=== PATIENT | female | born 2000 | race Caucasian/White ===

== ENCOUNTER 2023-04-26 01:10 | Emergency (ER) | payer MEDICAID, SELFPAY ==
[2023-04-26 01:16] VITALS: BP 97/65; PULSE 91; RESP 16; TEMP 36.9; O2SAT 100; BMI 20.4
--- NOTE | 2023-04-26 01:19 | ED_ITS ---
HPI - Ear Problem General Chief complaint: Ear Stated complaint: EAR PAIN Time Seen by Provider: 04/26/23 01:16 Source: patient Mode of arrival: walk-in Limitations: no limitations History of Present Illness HPI Narrative: patient presents complaining of increasing ear pressure for a couple of days. No dizziness or headache. No fever. States she also has a cold. Was swabed a coupled of days ago for flu and covid and neg Related Data Allergies Allergy/AdvReac Type Severity Reaction Status Date / Time amoxicillin Allergy Mild Hives Verified 04/26/23 01:16 Penicillins Allergy Mild Hives Verified 04/26/23 01:16 Review of Systems ROS Status of ROS 10 or more systems reviewed and unremark able except as noted in history and below Exam Constitutional Vital Signs, click to edit/add: Last Vital Signs Temp 98.4 F 04/26/23 01:16 Pulse 91 H 04/26/23 01:16 Resp 16 04/26/23 01:16 BP 97/65 04/26/23 01:16 Pulse Ox 100 04/26/23 01:16 O2 Del Method Room Air 04/26/23 01:16 Common normals: no apparent distress, average body habitus, oriented x3, no limitations, healthy appearing, alert and well nourished HENIN Common normals: normocephalic and head/scalp atraumatic Other: left TM with fluid bulge Eye Common normals: PERRL and EOMs intact bilaterally Respiratory Common normals: normal respiratory effort, no retractions and no use of accessory muscles Cardio Common normals: regular rate, regular rhythm, S1 normal heart sound and S2 normal heart sound Extremity Common normals: normal to inspection and full ROM Neuro Common normals: oriented x3, CN's II-XII intact bilaterally, moves all extremities and no focal motor deficits Psych Appearance: grossly normal Course Vital Signs Vital signs: Vital Signs Temperature 98.4 F 04/26/23 01:16 Pulse Rate 91 H 04/26/23 01:16 Respiratory Rate 16 04/26/23 01:16 Blood Pressure 97/65 04/26/23 01:16 Pulse Oximetry 100 04/26/23 01:16 Oxygen Delivery Method Room Air 04/26/23 01:16 Temperature 98.4 F 04/26/23 01:16 Pulse Rate 91 H 04/26/23 01:16 Respiratory Rate 16 04/26/23 01:16 Blood Pressure 97/65 04/26/23 01:16 Pulse Oximetry 100 04/26/23 01:16 Oxygen Delivery Method Room Air 04/26/23 01:16 Medical Decision Making MDM Narrative Medical decision making narrative: patient presents with URI and pressure pain of her left ear. Found to have bulge of the left TM. Patient complained of decreased hearing. Diagnosis with otitis media and discharged home Discharge Plan Discharge Chief Complaint: Ear Clinical Impression: Otitis media Patient Disposition: Home, Self-Care Instructions: Ear Infection (ED) Stand Alone Forms: Portal Instructions Referrals: Physician,Non-Staff, MD [Primary Care Provider] - 1 week
[2023-04-26] MEDS: AZITHROMYCIN 250 MG TABLET 500 MG PO (01:33)
== END 2023-04-26 01:38 | disposition home or self-care (01) ==
PROVIDERS: Emergency Provider Internal Medicine
DX: H66.92 Otitis media, unspecified, left ear (principal)
CPT/HCPCS: 99283

== ENCOUNTER 2023-08-09 01:48 | Observation (INO) | payer OTHER, SELFPAY ==
--- OUTSIDE RECORDS SUMMARY | 2023-08-09 01:51 | XMS_ITS | CCD ---
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 Q66xlAYxc1C6ADWx fIrzsIYlSfLgsPN9uJ6a GXnvpqxns6bqbedzIpye n2lkvn09vS15C07zKWci ZHRoPSIzMCUiIHZh pJwtir7wbU2hPw1+PGNv jJK5mGN1hQ4mKkIlRsU6 BBdrX966SsWusTMaOhvz h3jke5leiKn3UnRw EKNxobYcsKbcYED8h7Sc Dn41R77eQYnxCATsJDAr IVDcGVNxhSyhdk4vqE0d Ii8+XJ1oa5rxhh66 kH08yQQ+GSWiEFD0xVlt LSneGOEjdT5bKSmfHwO4 ANItGdCezQ22mIAuRNjd Yg8idCnniBbaDN1z OFTyuxibf521TcQzw9em JLXecYDpQPaoHKU5U78l h4X8OWTnJPYaRZB9yXG7 cP1eaIlnhzsbvVCn dDsgdmVydGljYWwtYWxp H903QNNjeLxtOuKhfYRa U5vataOKTL1aWobugMQ+ OJYtOBP7yLdhJVrc YXPwpA6bGTXeY7w2KmWy PxD2SXanR4XaesU6AXGl gYMdMUOojEMAgN3csudh l6hxfejqBdMoZCQp UOp6SVm3SUYtkJonUrKc THE8UmN5GXX7cGSsxA0x wBmnkllsnX8bQta+RklO OjwvdGQ+PHRkIHN0 wVrhSNmbGAYmwH8aREXb Z2m2EoKfRgO8HSzpW7Ud dwF8FEHdzTGbRPWdrDVN hH7csiwzk1eshjja DfSpFKYvHGo8HWc9VWUs zLlwHpVpRTA8DnW2WAM7 pWZtlM2odCyymnxycD1t Oyc+TVJOOjwvdGQ+ WPQfDMK8dPxqHDkwJWOv wW4xJULhL5c3DaMtSiZ1 GOrxX7RqmfM6DYVauHGu EXRfhIHFzX5hsvwq n6fdsuziBpDbSGKoDNq3 OVg8VLFcxHxfHeTkFKM9 UtI3ZCR9sRZmkP1nhVlo zwcteR8mHoo+UGF5 CSN3AL71VK87R6UmNbtb dGFibGU+PHRhYmxlIHdp ZHRoPScxMDAlJyBzdHls OW3qYz1eQOPqPAIb bGxh (more content not included)... Normal [facility] Consent for Treatmenton 03-14 Consent for Treatment [id number] #[id number]:127 Normal [facility] Discharge Instructionson Discharge Instructions [id number]#1.00CD:127 Normal [facility] ED Clinical Summaryon 2021 ED Clinical Summary [place] [id number] ED Clinical Summary Person Information Name: HARMONY RAYO [facility] Age: 22 Years : 2000 Sex: Female Language: Kittitian PCP: NAT ORTIZ DO Marital Status: Visit Id: Visit Reason: Hearing loss; Ear pain; EAR PAIN Speciality: Acuity: 4 Enc Type: Emergency Med Service: Emergency Arrival: 03/30/2022 02:15:32 Discharge: 03/30/2022 04:47:48 LOS: 000 02:32 Checkin: 03/30/2022 02:15:32 Checkout: 03/30/2022 04:47:48 Dispo Type: Home (Routine DC) EVENTS: Event Name Event Status Request Date/Time Start Date/Time Complete Date/Time Arrive Complete 03/30/2022 02:15:32 03/30/2022 02:15:32 03/30/2022 02:15:32 Document Home Meds Request 03/30/2022 02:15:32 Triage Complete 03/30/2022 02:15:32 03/30/2022 02:34:15 03/30/2022 02:34:15 Bed Assign Complete 03/30/2022 02:30:13 03/30/2022 02:30:13 03/30/2022 02:30:13 Dr Exam Complete 03/30/2022 02:30:13 03/30/2022 02:34:44 03/30/2022 02:34:44 RN Exam Complete 03/30/2022 02:30:13 03/30/2022 02:36:23 03/30/2022 02:36:23 Registration Complete 03/30/2022 02:34:44 03/30/2022 02:36:05 03/30/2022 02:36:05 Reg Complete Request 03/30/2022 02:36:05 Reg Bed Request Complete 03/30/2022 02:36:05 03/30/2022 02:36:05 03/30/2022 02:36:05 Patient Care Complete 03/30/2022 02:43:54 03/30/2022 03:44:01 Meds Admin Complete 03/30/2022 02:43:54 03/30/2022 02:48:44 Discharge Complete 03/30/2022 04:43:25 03/30/2022 04:47:58 03/30/2022 04:47:58 Transfer Complete 03/30/2022 04:47:58 03/30/2022 04:47:58 03/30/2022 04:47:58 ADDRESS: [address] [place] [phone] [facility] DOC NOTES: MEDICAL INFORMATION: Prescriptions Given: New Medications Printed Prescriptions azithromycin (azithromycin 250 mg Tab) 250 Milligram By Mouth As Directed. Refills: 0. Medications to Continue with No Changes Other Medications ondansetron (Zofran ODT 4 mg Tab-Dis) 1 Tablets By Mouth every 8 hours as needed as needed for nausea/vomiting. Refills: 0. PATIENT EDUCATION INFORMATION: Instructions: Earache, Adult Follow up: With: Address: When: NAT ORTIZ [address] [place], [place] [id number] Business (1) In 3 days 04/02/2022, only if needed DIAGNOSIS: 1:Left ear pain; 2:Impacted cerumen of left ear Normal [facility] ED Note-Physicianon 03-30-20 ED Note-Physician Basic Information Time Seen: Woodrow Sanchez MD 03/30/2022 02:34 Chief Complaint pt complains of L ear pain and difficulty hearing x2 days History of Present Illness Several days ago the patient attempted to clean out and dry her ear after showering and believes that she may have a pushed some soft wax deeper into the ear canal. She states she has had some congestion over the past several days but no fever. She does notice diminished hearing on the left side. Review of Systems A 10 point review of systems is negative except as noted above. Medical and Surgical History: Reviewed and noted Social history: Lives at home Tobacco: Denies Physical Exam Vitals & Measurements T: 37.0 ?C(Oral) HR: 74(Peripheral) RR: 22 BP: 120/76 SpO2: 100% HT: 160 cm WT: 52 kg BMI: 20.31 The right tympanic membrane is obscured by soft cerumen. The ear canal is not swollen or red. Left tympanic membrane also obscured by soft cerumen it does appear to place more deeply in the ear canal. The ear canal itself does not appear to be red. Traction on the pinna and palpation over the tragus is not particularly tender. Medical Decision Making We will irrigate the ear to attempt to remove the cerumen. If unsuccessful here in the ER we will place the patient on an oral antibiotic to cover the middle ear. I rechecked the left external ear canal after the nurses irrigated the ear. The ear canal is now completely clear of cerumen. The tympanic membrane does appear to be slightly retracted and somewhat injected this may simply be due to the manipulation and irrigation. As such I will prepare a prescription for Zithromax 6 pack to only be filled if the ear remains painful on Friday morning. Assessment/Plan 1. Left ear pain (H92.02: Otalgia, left ear) 2. Impacted cerumen of left ear (H61.22: Impacted cerumen, left ear) Orders: azithromycin, 250 mg, Oral, As Directed, # 6 tab(s), Refills(s) 0 carbamide peroxide otic, 5 drop(s), Soln-Otic, Ear-Left, Once, Stop date 03/30/22 2:43:00 EST, STAT, Start date 03/30/22 2:43:00 EST Ear Irrigation Medications Administered Given Debrox 6.5% Soln-Otic, 5 drop(s), Ear-Left Disposition Plan Patient Discharge Condition Improved Discharge Disposition Home Discharge Prescription List Prescriptions azithromycin 250 mg Tab, 250 mg, Oral, As Directed Follow-up With When Contact Information NAT ORTIZ In 3 days 04/02/2022 EST, only if needed [address] [place] [address] [facility] (1) Additional Instructions: Patient Education Earache, Adult Problem List/Past Medical History Ongoing Smoker Historical None Procedure/Surgical History None. Medications Inpatient No active inpatient medications Home azithromycin 250 mg Tab, 250 mg, Oral, As Directed Zofran ODT 4 mg Tab-Dis, 4 mg= 1 tab(s), Oral, q8hr, PRN Allergies amoxicillin penicillins Social History Alcohol Current, Wine, 1-2 times per month, 03/30/2022 Substance Abuse Tobacco Current vaping or e-cigarette use Smokeless Tobacco Use:. Vaping, 03/30/2022 Household tobacco concerns: Yes., 12/27/2010 Lab Results No qualifying data available. Diagnostic Results No qualifying data available. Normal [facility] Comment on above: Result Comment: Elec tronically Signed By: Daniel SEVERINO, Woodrow\.br\Date and Time Signed: 03/30/22 04:44 EST ED Patient Education Noteon 03-30-2022 ED Patient Education Note ENT Earache, Adult An earache, or ear pain, can be caused by many things, including: ? An infection. ? Ear wax buildup. ? Ear pressure. ? Something in the ear that should not be there (foreign body). ? A sore throat. ? Tooth problems. ? Jaw problems. Treatment of the earache will depend on the cause. If the cause is not clear or cannot be determined, you may need to watch your symptoms until your earache goes away or until a cause is found. Follow these instructions at home: Pay attention to any changes in your symptoms. Take these actions to help with your pain: ? Take or apply ppli-zek-bgofazc and prescription medicines only as told by your health care provider. ? If you were prescribed an antibiotic medicine, use it as told by your health care provider. Do not stop using the antibiotic even if you start to feel better. ? Do not put anything in your ear other than medicine that is prescribed by your health care provider. ? If directed, apply heat to the affected area as often as told by your health care provider. Use the heat source that your health care provider recommends, such as a moist heat pack or a heating pad. ? Place a towel between your skin and the heat source. ? Leave the heat on for 20?30 minutes. ? Remove the heat if your skin turns bright red. This is especially important if you are unable to feel pain, heat, or cold. You may have a greater risk of getting burned. ? If directed, put ice on the ear: ? Put ice in a plastic bag. ? Place a towel between your skin and the bag. ? Leave the ice on for 20 minutes, 2?3 times a day. ? Try resting in an upright position instead of lying down. This may help to reduce pressure in your ear and relieve pain. ? Chew gum if it helps to relieve your ear pain. ? Treat any allergies as told by your health care provider. ? Keep all follow-up visits as told by your health care provider. This is important. Contact a health care provider if: ? Your pain does not improve within 2 days. ? Your earache gets worse. ? You have new symptoms. ? You have a fever. Get help right away if: ? You have a severe headache. ? You have a stiff neck. ? You have trouble swallowing. ? You have redness or swelling behind your ear. ? You have fluid or blood coming from your ear. ? You have hearing loss. ? You feel dizzy. This information is not intended to replace advice given to you by your health care provider. Make sure you discuss any questions you have with your health care provider. Document Released: 11/15/2004 Document Revised: 03/13/2018 Document Reviewed: 09/23/2016 Elsevier Patient Education ? 2019 [employer] Normal [facility] ED Patient Summaryon 022 ED Patient Summary [place] [id number] Patient Discharge Instructions Person Information Name: HARMONY RAYO Age: 22 Years Arrival Date: 03/30/2022 02:15:32 Discharge Diagnosis: 1:Left ear pain; 2:Impacted cerumen of left ear Primary Care Physician: NAT ORTIZ DO Provider Information Primary Provider: Woodrow Sanchez MD Advanced Extrusion Manager:None The exam and treatment you received in the Emergency Department were for an urgent problem and are not intended as complete care. It is important that you follow up with a doctor, nurse practitioner, or physician?s editorial assistant for ongoing care. If your symptoms become worse or you do not improve as expected and you are unable to reach your usual health care provider, you should return to the Emergency Department. We are available 24 hours a day. HARMONY RAYO has been given the following list of patient education materials, prescriptions and follow-up instructions: Follow-up Instructions: With: Address: When: NAT ELIGLES [facility] [address] [place] [id number] [facility] (1) In 3 days 04/02/2022, only if needed In the event that this physician does not participate in your insurance network, please consult with your insurance company to find a nearby participating provider. Patient Education Materials: Earache, Adult A MESSAGE TO ALL PATIENTS REGARDING OPIOIDS PRESCRIPTION OPIOIDS: WHAT YOU NEED TO KNOW Prescription opioids can be used to help relieve pqoygaik-ne-wekoqt pain and are often prescribed following a surgery or injury, or for certain health conditions. These medications can be an important part of the treatment but also come with serious risks. It is important to work with your healthcare provider to make sure you are getting the safest, most effective care. WHAT ARE THE RISKS AND SIDE EFFECTS OF OPIOID USE? Prescription opioids carry serious risks of addiction and overdose, especially with prolonged use. An opioid overdose, often marked by slowed breathing, can cause sudden . The use of prescription opioids can have a number of side effects as well, even when taken as directed: ? Tolerance?meaning you might need to take more of the medication for the same pain relief ? Physical dependence?meaning you have symptoms of withdrawal when a medication is stopped ? Increased sensitivity to pain ? Constipation ? Nausea, vomiting, and dry mouth ? Sleepiness and dizziness ? Confusion ? Depression ? Low levels of testosterone that can result in lower sex drive, energy, and strength ? Itching and sweating RISKS ARE GREATER WITH: ? History of drug misuse, substance use disorder, or overdose ? Mental health conditions (such as depression or anxiety) ? Sleep apnea ? Older age (65 years and older) ? Avoid alcohol while taking prescription opioids. Also, unless specifically advised by your health care provider, medications to avoid include: ? Benzodiazepines (such as Xanax or Valium) ? Muscle relaxants (such as Soma or Flexeril) ? Hypnotics (such as Ambien or Lunesta) ? Other prescription opioids KNOW YOUR OPTIONS Talk to your health care provider about ways to manage your pain that don?t involve prescription opioids. Some of these options may actually work better and have fewer risks and side effects. Options may include: ? Pain relievers such as acetaminophen, ibuprofen, and naproxen ? Some medication that are also used for depression or seizures ? Physical therapy and exercise ? Cognitive behavioral therapy, a psychological, goal-directed approach, in which patients learn how to modify physical, behavioral, and emotional triggers of pain and stress. IF YOU ARE PRESCRIBED OPIOIDS FOR PAIN: ? Never take opioids in greater amounts or more often than prescribed. ? Follow up with your primary health care provider. o Work together to create a plan on how to manage your pain. o Talk about ways to help manage your pain that don?t involve prescription opioids. o Talk about any and all concerns and side effects. ? Help prevent misuse and abuse o Never sell or share prescription opioids. o Never use another person?s prescription opioids. ? Store prescription opioids in a secure place and out of reach of others (this may include visitors, children, friends, and family). ? Safely dispose of unused prescription opioids: Find your community drug take-back program or your pharmacy mail-back program, or flush them down the toilet, following guidance from the Food and Drug Administration (www.fda.gov/Drugs/R esourcesForYou). ? Visit www.cdc.gov/drugover dose to learn about the risks of opioids abuse and overdose. ? If you believe you may be struggling with addiction, tell your health medicare insurance specialist and ask for guidance or call SAMHSA?S National Helpline at 3-482-705-YYNK. (more content not included)... Normal [facility] Coding Summary.on 02-05-2022 Coding Summary. [id number] Gh0bWw+PGhlYWQ+PE1FV CGmV39joZPubF6YL8eNU H2XCLZSTEWFCB7WXV4bo QG6PDopM1ZqbnJg IdqozPScCG88XHx4UXZ8 oQmdTHjboD3nqLLxM2u5 MhNxXP01fD30TFwfVPGm RgN2AoQrqkpyuGVk X3haQtBamXXoYoj+PHRh YmxlIHdpZHRoPScxMDAl YiIfsFwuPL3wSb1rDKQf LWNvbGxhcHNlOiBj y2vlKHXmPCxlYR8fnXcq A3ByiLH4XTUsh7z6Xo92 dHI+VKOwMZF7gQgcKLuh o145VqAba5hxLZB4 yHFcMXqtCPB7T23ee9W8 YBQtQIMcTPL7sIB7xR7f zGtgjyxzH9KrwXWrRzQ9 GVS1gHMwsP9wgWvs fjtfxI7hPxd+G57IWV2P PIRRJC7TRjn5M5KsPfjb dHI+AB86URQiUC43xQVw wJOrm2ieyEd7EyGu WJQwLDU5uOakNBfqp5Ql PHUlB80qrOGbr7Y4TILl vUyldDSzBsZlbVK6aY8b YNylwjowo0vxqyab Xdkst6bcpc56aK04O59f IKblFMPmAHU0VSBzNIAa dBucyv9qgX8mWy0+IDxj s4oct9ndzUt1PfKa AXXopwWssPnuIDC7k7Tr Zu66O9VrbGyyr6OfXhq4 mm95hFEgs4K3iIZ2OJvx WVAtjV4fFBujQoR0 FLPhLqYemW94xBFxZJlo Ap3bzOdpgYznTO0sOQKk wfasWWSdmM5mSCKprBUu wFgyOD0kVCLzvkvp q793OgSdUZS5JLYyrTKb V4OvrH2rSdTxTKApETSe P7MosDPsLStzY876WFwn RfU7QMGxudJhO8Rs XYBxpFwsFdZ7d1L8Vr5O m8HoayghALG4UWioMCHs UvD3NgYdHlK5P9IdOir1 KFNzgGgtPO7rP2Ek MHAqwdsukqydaRI7MLFf UCNpmY83mFRbWDlaBd2p n5V8p549PMJmVCGpoO03 Vv0zrHnnYGEzlCZP lY5kuvbtp4tkikcvKnUu OPXfGMi8URc7CESveCof DgSoIZB1VrT4NBV0zPNt cO1pkHxhedkajC9q Oyc+T90yuB4rSOA9YPD0 poqiHSViliAoBG22WX71 D7XqYshzpFTrtKN+PGRp chNqjAajAU0hPdVl x5drc9HoFXnaB5RbZEUs RUwtLrg4ZXPbLOS1yOU0 vF2qCFBzYXrtl1D9rTR8 G2EdbbVgwu5cz4do WFNiUBmfQ47vjNGdt2Q1 AOWwiRQ0UHBmcBaxXjVd cR63Mhb+MGGocCgkl1Aa Btwce6wrp1vbjOe4 IjMwJSIgdmFsaWduPSJ0 n3PvZr09I69wQZtaPLJv FODzUXLjLEVxtIfton5f gL9kMu5+PGNvbCB3 bZN0aV9sSNPuXnR4PHju M691OvCvyHVxLoryr0hp h7rfyLa2FmXvDWZvejHy mYpaYBA0j4RmTw99 P09dIXcyMWJxHJKeDUKo BRGlyXmwqt7wwQ3nMr2+ ZP5vr3obmd41wR50qKZ+ UGUqZTY4fNwpTLze BCDhuK6bSQsgEeT1RCTy BqLjnC78fLHhQJwrHl8e tGhiaSljYZ3kUNLikjyg e224RlJqa3wvLJLx uFVfCGotQLU9J82mq7S0 DJWeWZBhDSD1gTL3nK4j bGlnbjogbGVmdDsgdmVy yUwgSLvoYNbzG988 IHRvcDsnPlBhdGllbnQg GsUcXXo1W3UdGhs2HYAc jCayXX2onXQaVLunKo9v zFelcMbgYF0jIUXn dvokq923KvIcc9ggMVOm tTWdUCzeCHM1F64xy1T4 EBNrKSPeKQI4dUQ5bG2g bGlnbjogbGVmdDsg caAudVkxPOooZZizV546 IHRvcDsnPkJpcnRoIERh nNM7YW99US75xWUdg2K4 uEX3N7RkTCOehmoi hmonlYQ9ZCQdRMQhfE83 Jl4ryNejKq1bTIXmSXS0 YNVdrVVjL8WirW0oThBw LDHgJNVuC3AurULs PKpbE800YKyuPdN0UFZw kpHwV9RdEVLdhXddKnO6 r9Y3Er2AX9F2FT12XD98 jTOea1N5vHM8V6Iz ULJjdbefgoqupXR7TLQy EYJzmE61Qt8pgEjaFw7m SHMqEJB6DFBffUPwU7Yv oA8pVvObPTJtNJXo N3GozULeOSodU004ITik QnO7LKAthlDsS3UkIMEk qEtwZgU6d7Q1Ni1ZHBk2 FP32RP58tTPuo6I1 cMA4U5ShTJOxkbsiitga gUZ2GIEjCLZkrQ31Az6e kAxvYw7yUIRkQII8MAYg pATvG9TmfJ4pUkRu FKDnTJEtZ7KvmSYdQLvh Y369EMdzVvI8QKEqckBr I9CvHBYomHuaDgU7l5G9 Gp4LYZUsWX88NOH8 sTU0ZX07HM35Y8UqPuns dGFibGU+PHRhYmxlIHdp ZHRoPScxMDAlJyBzdHls EP9oVl8rOLEqEDSg zPaitEMgEwSwc4ugXICw KRsrEZ5vgJbxY1DlfQD4 ECTus6n7Tf31F02dC2Xe dXA+QEHfhXH2rPZ6 vH2wCbEaKlB7TMgbA535 RcEgxHXsGxvlr0xjv7tk tKc6LlV1RGJaaqEbhLnr QTL4r1BeDn20N18i IHdpZHRoPSIxNSUiIHZh wSobkd1pjZ5sNv6+PGNv aOM2nFT4qF0rOkQqUiY2 MWobR643AjXzySXn Yjril3ljx3moqWd2VzZz SKNpeoMtaFqsAXC1c8So Er15J9OazKjri5BmHrx6 sz49uUWsr1R3gIU0 Q7HhYGVczrigxTTlcRaf TP8gNBGptsnkETOlgX4v JESeP1d6LpOeAzL0UDjl U6WwhnQ5RNGocFKx TZhvGKU2O32xt6O4IGOq LDYwDQW3rKU6eL7waXlh bjogbGVmdDsgdmVydGlj CUwvLVoeD722EJUf aQxsWAHscQ2rYTPlrHOv eMphAA0mLVFceeotJqxI XwDCOBdeEhRHSg6HKAkM BoN5O1TrQox0ECZf vVbtJI2gxCEgGTubOb8y pWfeoOzcEZ2fWRPfxznc JMWccD4tBFJpkDTuwPju HC7vGLKxmnisy071 NlYvTYM0PCTlcTLiR1Jj aI1yFzOkDJYmOVFkN0Wr qMMfCWihI406DNzwImH5 XZRsykKnN7PrAZPz qSzwJpB0u9W6Ra2pQJ5d TT9qOCMnHA73KM14xQZk n7S6lWU0X0ChYMVgselt qezzrBP4HAStFYUo jH56nHFwKCnmEk7as5Q3 a050MHSjAQTgcB02Je6q rMlvQLKhuEKOvA0rxcqy r0erlewaDhPzZBHk DSz3HVj7KDDpfUcsFjMi KNV7GcD9ZRG3dFMdvV3w oNipxtpsqA6lYom+MjAg CBVyrjA4W6CoKft1 TUBskHtsIL4xfSQiDHjd Xw4ugCadoJcxHW8nYTJv qkuwKXQzbH4fSPPbnMMb fLzbXI3qVFLdoxfu y473FsMtHKH4MKWvnQQi G0YfrY6oAbIlCIXfXUKe Q7IcjOGnXAfrF749NXan BrR8OWVgujOuV7Ek EXGwqClyJdF9a7U2Iy5Q SY4loEH7D5UaFdq8HOHq gUcsNS4jlAKjRCyhYn0f xUfkgXfsKG5yAZVn skuqWFKcpN5hNCStkOPr tLppTV0wQTFzydbkw045 YkBvGAJ7DIEpzEWdZ2Uo nN8sIxIaPVHdFGDd P0YjaMWwVJpnU464LHlg AlR3JWXmgtYiL8InIZDl sFybYhR5p5A4Ac7HpVQm Y9LcL4u6B5JwQxem dHI+JJ88XDVcQC07hTJf fIMrw7xcaUt0OmNaFOYr GVZ1vUiiVKqjz5GhXETk P65rxHIds1Z3RWId oMerbBQyGaUugEI8wE4p JDibysfoq1tknftdOzyo m2ogyb82uQ35L36bFWao ZHRoPSIzMCUiIHZh jTmrox8keO7aCf8+PGNv fCC2zNP0iC3mBsAsNgD3 QGtjM772XfNwzAWbEwlw q3uow0jkhFm4MtHh RSLokvEkgBiwAVI4u0Zj On76Z03sEWrlFMYnPWTh NTHeBPWtbAnhlf0ufB0n Ii8+WQ9ul2nyxo27 eD20uNV+UTQyGFK4qKby YNdsICDbaN8bTFvqToM3 KUWnBcXaaL69xZWaLRim Lo6ivOuhlFndNE5y BXEskqycb582HwSdl7ql EFDqrFJwQLcbLBX2Q47n w1W5KNGxLLTfKXG2cDA6 qJ4gyRjrsdqvgDNz dDsgdmVydGljYWwtYWxp R040UNAkoWdaWoVcnXVs Z6wsltTGTM8iAiyguQF+ ANMaLAY1hGanGZvc MSIvrN9tTXSoH2p7XhGr HsU2MKpbJ2LlwvM7ANGo aSGmGKInuAUQwP5hwjlk t1hcghbmUjWyLVMb KMc4GGw7OEZjpVzkLfAu HGP4OjO6ENP4tMPalA2y vWvgjxtqbM8uIfx+RklO OjwvdGQ+PHRkIHN0 sDxzGFppQQIpmB0wYJXw W4x5GtJbMfC0IVtmN8Ei hyP9XWIorPQgVENeiIVM aT0ejyudg4eycbrz CoKoKTItOYu2MQv1LIZs uNllChJzJJM7NmB3TRC1 iDGceU3rzPbdxhpbeW7v Oyc+TVJOOjwvdGQ+ MRLvRIS0eFviWQfmAAFu mR4iQKBpK4k5BeQmUuZ5 DOdjH0UiwqS6IMAeuTBo RXWybSEHoY3rcmfw k5ljmjpvNuSlQUSaSTi3 LDh4WAMlzEvfKkWsJWZ0 DnF5JNN5kBWmgK9twSzn arnkrQ2fWah+UGF5 LEX6NX96XZ33V0XjIdbc dGFibGU+PHRhYmxlIHdp ZHRoPScxMDAlJyBzdHls ZO0eLq5wGCYpTCRg bGxh (more content not included)... Normal [facility] Discharge Instructionson Discharge Instructions [id number] Normal [facility] ED Clinical Summaryon 2021 ED Clinical Summary [place] [id number] ED Clinical Summary Person Information Name: HARMONY RAYO [facility] Age: 21 Years : 2000 Sex: Female Language: Kittitian PCP: NAT ORTIZ DO Marital Status: Visit Id: Visit Reason: Foreign body - Vaginal; TAMPON STUCK Speciality: Acuity: 4 Enc Type: Emergency Med Service: Emergency Arrival: 02/04/2022 21:45:38 Discharge: 02/04/2022 22:19:15 LOS: 000 00:34 Checkin: 02/04/2022 21:45:38 Checkout: 02/04/2022 22:19:15 Dispo Type: Home (Routine DC) EVENTS: Event Name Event Status Request Date/Time Start Date/Time Complete Date/Time Arrive Complete 02/04/2022 21:45:38 02/04/2022 21:45:38 02/04/2022 21:45:38 Document Home Meds Request 02/04/2022 21:45:38 Triage Complete 02/04/2022 21:45:38 02/04/2022 21:55:18 02/04/2022 21:55:18 Registration Complete 02/04/2022 21:50:18 02/04/2022 21:50:18 02/04/2022 21:50:18 Reg Complete Request 02/04/2022 21:50:18 Reg Bed Request Complete 02/04/2022 21:50:18 02/04/2022 21:50:18 02/04/2022 21:50:18 RN Exam Complete 02/04/2022 21:56:44 02/04/2022 21:56:44 02/04/2022 21:56:44 Bed Assign Complete 02/04/2022 21:56:52 02/04/2022 21:56:52 02/04/2022 21:56:52 Dr Exam Complete 02/04/2022 21:56:52 02/04/2022 21:58:46 02/04/2022 21:58:46 Registration Request 02/04/2022 21:58:46 Dr Exam Complete 02/04/2022 21:59:27 02/04/2022 21:59:27 02/04/2022 21:59:27 Discharge Complete 02/04/2022 22:14:31 02/04/2022 22:19:20 02/04/2022 22:19:20 Transfer Complete 02/04/2022 22:19:20 02/04/2022 22:19:20 02/04/2022 22:19:20 ADDRESS: [address] [place] [address] [id number] [facility] DOC NOTES: MEDICAL INFORMATION: Prescriptions Given: Medications to Continue with No Changes Other Medications ondansetron (Zofran ODT 4 mg Tab-Dis) 1 Tablets By Mouth every 8 hours as needed as needed for nausea/vomiting. Refills: 0. PATIENT EDUCATION INFORMATION: Instructions: Vaginal Foreign Body, Hraz-ai-Zfpg; Health Maintenance, Male Follow up: With: Address: When: NAT ORTIZ [address] [place] [address] [place] [id number] Business (1) In 3 days 02/07/2022 Comments: Follow-up with your primary care provider in 3 to 5 days. If symptoms worsen, do not improve, or new symptoms arise please report back to emergency department for further evaluation. DIAGNOSIS: Encounter for medical screening examination Normal [facility] ED Note-Physicianon 02-06-20 ED Note-Physician Basic Information Time Seen: Darryl DAVEY, Beau Dhillon 02/04/2022 21:58 Chief Complaint Pt. presents to the ed with c/o having a tampon stuck in her vaginal canal. History of Present Illness 21-year-old female reports emergency department chief complaint of a foreign body in her vagina. She states that she believes that she has a tampon stuck in her vaginal canal. She states that she replaced when originally around 1230 this afternoon, and when she went to change it around 2, she could not find it. She states that she did put another one in because of bleeding because she is currently is on her period. She reports that she has had some very mild cramping, believes that this is because of her period. Review of Systems A 10 point review of systems is negative except as noted above. Medical and Surgical History: Reviewed and noted Social history: Lives at home Family History: Reviewed. Tobacco: Denies Physical Exam Vitals & Measurements T: 36.7 ?C(Oral) HR: 84(Peripheral) RR: 18 BP: 109/76 SpO2: 100% HT: 157.48 cm WT: 50 kg BMI: 20.16 General: The patient appears well and in no apparent distress. Patient is resting comfortably on bed. Afebrile Skin: Warm, dry, no pallor noted. Head: Normocephalic, atraumatic Neck: No JVD Eye: PERRLA, EOMI ENT: Moist mucus membranes Cardiovascular: Regular rate normal peripheral perfusion Respiratory: No respiratory distress no accessory muscle use no obvious audible wheezing Chest Wall: no deformity Musculoskeletal: normal ROM, no deformity, no swelling GI: No obvious distention soft nontender nondistended no guarding rebounding or rigidity : Pelvic exam was performed with medical student Carri Abrams as a tire layer. Performed pelvic exam, which revealed a clear vaginal vault with no bleeding noted. Do not see any foreign bodies identified. The cervical os was seen, and was closed. No blood was seen coming out of the eyes. Did extensive search, with multiple times with no foreign body seen. Neurological: A&O moves all extremities equal strength and symmetry Psychiatric: Cooperative and appropriate Medical Decision Making 21-year-old female reports emergency department with a complaint that she may have a tampon stuck in her vagina. After pelvic exam with tire layer, I did not see any tampon in the vaginal vault. I discussed that with the patient that I did not find any foreign bodies, she was relieved. Discussed that this likely have fallen out previously. Patient was understanding. Discussed warning signs of continued vaginal foreign bodies to the patient. Follow-up with your primary care provider in 3 to 5 days. If symptoms worsen, do not improve, or new symptoms arise please report back to emergency department for further evaluation. The patient was understanding and agreeable to plan moving forward. Assessment/Plan Encounter for medical screening examination (Z13.9: Encounter for screening, unspecified) Disposition Plan Patient Discharge Condition Stable Discharge Disposition To home Discharge Prescription List Prescriptions No active prescription medications Follow-up With When Contact Information NAT ORTIZ In 3 days 02/07/2022 EDT [address] [place] [address]- Business (1) Additional Instructions: Follow-up with your primary care provider in 3 to 5 days. If symptoms worsen, do not improve, or new symptoms arise please report back to emergency department for further evaluation. Patient Education Vaginal Foreign Body, Rfaa-ff-Yjbv Health Maintenance, Male Attestation Patient seen and evaluated by the physician editorial assistant. Attending physician was present in the emergency department and supervised care. This visit was performed by both the physician and an APC. I performed all aspects of the MDM as documented. This report was transcribed using voice recognition software. Every effort was made to ensure accuracy, however, inadvertently computerized industrial arts teacher mistakes may be present. Appropriate healthcare PPE was used in evaluating this patient. The patient was placed in a mask. The healthcare provider was wearing mask, gloves, and utilizing proper hand hygiene. All equipment was properly cleansed. Problem List/Past Medical History Ongoing Smoker Historical None Procedure/Surgical History None. Medications Inpatient No active inpatient medications Home Zofran ODT 4 mg Tab-Dis, 4 mg= 1 tab(s), Oral, q8hr, PRN Allergies amoxicillin penicillins Social History Tobacco Household tobacco concerns: Yes., 12/27/2010 Lab Results No qualifying data available. Diagnostic Results No qualifying data available. Normal [facility] Comment on above: Result Comment: Elec tronically Signed By: Beau Andrews PA-C\.br\Date and Time Signed: 02/04/22 23:57 EDT\.br\Electronically Co-Signed By: Jeremi Grayson DO\.br\Date and Time Co-Signed: 02/05/22 01:35 EDT ED Patient Education Noteon 02-05-2022 ED Patient Education Note Obstetrics and Gynecology Vaginal Foreign Body A vaginal foreign body is an object that gets stuck or left in the vagina. This can cause: ? Light vaginal bleeding. ? Fluid (discharge) coming from the vagina. This might smell bad or have some blood in it. ? Itching. ? Burning. ? Redness, swelling, or rash near the vagina. ? Belly (abdominal) pain. ? Fever. ? Burning when you pee (urinate). ? Peeing more often than normal. In most cases, symptoms go away once the object is taken out. In rare cases, an object can break through the enriquez of the vagina. This can cause a very bad infection. Follow these instructions at home: ? Take ywsu-siw-svinszd and prescription medicines only as told by your doctor. ? If you were prescribed an antibiotic medicine, take it as told by your doctor. Do not stop taking the antibiotic even if you start to feel better. ? Do not have sex or use tampons until your doctor approves. ? Do not douche or use vaginal rinses unless your doctor says this is okay. ? Keep all follow-up visits as told by your doctor. This is important. Contact a doctor if: ? You have belly (abdominal) pain. ? You have pain when you pee. ? You have a fever. Get help right away if: ? You have a lot of blood or fluid coming from your vagina. ? You have very bad belly pain. Summary ? A vaginal foreign body is any object that gets stuck or left inside the vagina. ? In most cases, symptoms go away once the object is found and taken out. ? Do not have sex or use tampons until your doctor approves. This information is not intended to replace advice given to you by your health care provider. Make sure you discuss any questions you have with your health care provider. Document Released: 03/19/2010 Document Revised: 03/13/2018 Document Reviewed: 07/02/2017 Auto I.D. Patient Education ? 2020 [employer]. Urology Health Maintenance, Male Adopting a healthy lifestyle and getting preventive care are important in promoting health and wellness. Ask your health care provider about: ? The right schedule for you to have regular tests and exams. ? Things you can do on your own to prevent diseases and keep yourself healthy. What should I know about diet, weight, and exercise? Eat a healthy diet ? Eat a diet that includes plenty of vegetables, fruits, low-fat dairy products, and lean protein. ? Do not eat a lot of foods that are high in solid fats, added sugars, or sodium. Maintain a healthy weight Body mass index (BMI) is a measurement that can be used to identify possible weight problems. It estimates body fat based on height and weight. Your health care provider can help determine your BMI and help you achieve or maintain a healthy weight. Get regular exercise Get regular exercise. This is one of the most important things you can do for your health. Most adults should: ? Exercise for at least 150 minutes each week. The exercise should increase your heart rate and make you sweat (moderate-intensity exercise). ? Do strengthening exercises at least twice a week. This is in addition to the moderate-intensity exercise. ? Spend less time sitting. Even light physical activity can be beneficial. Watch cholesterol and blood lipids Have your blood tested for lipids and cholesterol at 20 years of age, then have this test every 5 years. You may need to have your cholesterol levels checked more often if: ? Your lipid or cholesterol levels are high. ? You are older than 40 years of age. ? You are at high risk for heart disease. What should I know about cancer screening? Many types of cancers can be detected early and may often be prevented. Depending on your health history and family history, you may need to have cancer screening at various ages. This may include screening for: ? Colorectal cancer. ? Prostate cancer. ? Skin cancer. ? Lung cancer. What should I know about heart disease, diabetes, and high blood pressure? Blood pressure and heart disease ? High blood pressure causes heart disease and increases the risk of stroke. This is more likely to develop in people who have high blood pressure readings, are of descent, or are overweight. ? Talk with your health care provider about your target blood pressure readings. ? Have your blood pressure checked: ? Every 3?5 years if you are 18?39 years of age. ? Every year if you are 40 years old or older. ? If you are between the ages of 65 and 75 and are a current or former smoker, ask your health care provider if you should have a one-time screening for abdominal aortic aneurysm (AAA). Diabetes Have regular diabetes screenings. This checks your fasting blood sugar level. Have the screening done: ? Once every three years after age 45 if you are at a normal weight and have a low risk for diabetes. ? More often and at a younger age if you are overweight or have a high risk for lonnie (more content not included)... [facility] ED Patient Summaryon 022 ED Patient Summary [address] [address] Patient Discharge Instructions Person Information Name: HARMONY RAYO Age: 21 Years Arrival Date: 02/04/2022 21:45:38 Discharge Diagnosis: Encounter for medical screening examination Primary Care Physician: NAT ORTIZ DO Provider Information Primary Provider: Jeremi Grayson DO Advanced Extrusion Manager:None The exam and treatment you received in the Emergency Department were for an urgent problem and are not intended as complete care. It is important that you follow up with a doctor, nurse practitioner, or physician?s editorial assistant for ongoing care. If your symptoms become worse or you do not improve as expected and you are unable to reach your usual health care provider, you should return to the Emergency Department. We are available 24 hours a day. HARMONY RAYO has been given the following list of patient education materials, prescriptions and follow-up instructions: Follow-up Instructions: With: Address: When: NAT ORTIZ [address] [place] [id number] Business () In 3 days 02/07/2022 Comments: Follow-up with your primary care provider in 3 to 5 days. If symptoms worsen, do not improve, or new symptoms arise please report back to emergency department for further evaluation. In the event that this physician does not participate in your insurance network, please consult with your insurance company to find a nearby participating provider. Patient Education Materials: Vaginal Foreign Body, Kbsq-ya-Htnn; Health Maintenance, Male A MESSAGE TO ALL PATIENTS REGARDING OPIOIDS PRESCRIPTION OPIOIDS: WHAT YOU NEED TO KNOW Prescription opioids can be used to help relieve tjbqqznz-aj-aadbuc pain and are often prescribed following a surgery or injury, or for certain health conditions. These medications can be an important part of the treatment but also come with serious risks. It is important to work with your healthcare provider to make sure you are getting the safest, most effective care. WHAT ARE THE RISKS AND SIDE EFFECTS OF OPIOID USE? Prescription opioids carry serious risks of addiction and overdose, especially with prolonged use. An opioid overdose, often marked by slowed breathing, can cause sudden . The use of prescription opioids can have a number of side effects as well, even when taken as directed: ? Tolerance?meaning you might need to take more of the medication for the same pain relief ? Physical dependence?meaning you have symptoms of withdrawal when a medication is stopped ? Increased sensitivity to pain ? Constipation ? Nausea, vomiting, and dry mouth ? Sleepiness and dizziness ? Confusion ? Depression ? Low levels of testosterone that can result in lower sex drive, energy, and strength ? Itching and sweating RISKS ARE GREATER WITH: ? History of drug misuse, substance use disorder, or overdose ? Mental health conditions (such as depression or anxiety) ? Sleep apnea ? Older age (65 years and older) ? Avoid alcohol while taking prescription opioids. Also, unless specifically advised by your health care provider, medications to avoid include: ? Benzodiazepines (such as Xanax or Valium) ? Muscle relaxants (such as Soma or Flexeril) ? Hypnotics (such as Ambien or Lunesta) ? Other prescription opioids KNOW YOUR OPTIONS Talk to your health care provider about ways to manage your pain that don?t involve prescription opioids. Some of these options may actually work better and have fewer risks and side effects. Options may include: ? Pain relievers such as acetaminophen, ibuprofen, and naproxen ? Some medication that are also used for depression or seizures ? Physical therapy and exercise ? Cognitive behavioral therapy, a psychological, goal-directed approach, in which patients learn how to modify physical, behavioral, and emotional triggers of pain and stress. IF YOU ARE PRESCRIBED OPIOIDS FOR PAIN: ? Never take opioids in greater amounts or more often than prescribed. ? Follow up with your primary health care provider. o Work together to create a plan on how to manage your pain. o Talk about ways to help manage your pain that don?t involve prescription opioids. o Talk about any and all concerns and side effects. ? Help prevent misuse and abuse o Never sell or share prescription opioids. o Never use another person?s prescription opioids. ? Store prescription opioids in a secure place and out of reach of others (this may include visitors, children, friends, and family). ? Safely dispose of unused prescription opioids: Find your community drug take-back program or your pharmacy mail-back program, or flush them down the toilet, following guidance from the Food and Drug Administration (www.fda.gov/Drugs/R esourcesForYou). ? Visit www.cdc.gov/drugov (more content not included)... Normal [facility] Consent for Treatmenton 01-13 Consent for Treatment [phone] 21 [id number] #1.00CD:127 Normal [facility] Established Visit (Orthopaed ic Surgery)on 10-26-2019 Established Visit (Orthopaedic Surgery) History of Present Illness Harmony is an 19 year old female who presents for a follow up evaluation of scoliosis today. She says that she has been doing well and has no concerns at this time. She denies pain, neurological symptoms and nocturia. She denies a family history. She began menarche 5 years ago. 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 Active Problems Adolescent idiopathic scoliosis of thoracolumbar region (737.30) (M41.125) Past Medical History History of No significant past medical history Surgical History Denied: History Of Prior Surgery Family History No pertinent family history Social History Never a smoker Allergies No Known Allergies Recorded By: Melodie Jaramillo; 08/22/2016 8:07:08 AM Current Meds No Reported Medications Recorded SELIN = N; Record; Last Updated By: Melodie Jaramillo; 08/22/2016 8:07:07 AM Vitals Vital Signs Recorded: [id number] 03:23PM Height5 ft 2.99 in 2-20 Stature Wmtzigubli99 % Wrlhah393 lb 2.66 oz 2-20 Weight Pqdihodyyj31 % BMI Cbxvgkpuzs80.94 BMI Xtcdtufvih52 % BSA Calculated1.55 Physical Exam General : Well developed, well nourished female in no acute distress. Skin: The skin is intact with no evidence of abrasions, bruises, or swelling. She stood 160 cm in height and weighed 53.6 kg. She stood with level pelvis and shoulders. In the forward bend position, she had a mild right thoracic rib hump and slightly larger left lumbar prominence. She had good spinal mobility with right and left lateral bending, lateral rotation and lumbar extension. Her neurological examination was normal. Muscle strength was 5/5 in all muscle groups. No sensory deficits were present. Deep tendon reflexes were 2+ and symmetrical with no signs of clonus. Babinski signs were absent. Results/Data She has a 23 curve from T5-T10, a 42 curve from T10-L3, and a 15 curve from L3 to the sacrum. She is Risser 5. Diagnoses/Problems Adolescent idiopathic scoliosis of thoracolumbar region (737.30) (M41.125) Provider Impressions Marlene has a stable curve and she is nearly skeletally mature. We are going to check her again in 12 months with a repeat AP and lateral standing scoliosis film to look for progression. If he does progress over time, surgery may become more indicated but at this point observation is still appropriate. She and her family understand that we will need to follow her past skeletal maturity. Signatures Electronically signed by : Melodie Jaramillo MD; Oct 27 2019 9:33PM EST (Author) Normal [facility] PARATHYROID HORMONE,INTACTon 07-20-2019 PARATHYROID HORMONE,INTACT 85.4 pg/mL Normal 18.5 - 88.0 [facility] Comment on above: Performed By: #### V TDOH #### [facility] [address] [place] [address] CBC AND DIFFERENTIALon 07-18 % AUTOMATED IMMATURE GRAN 0.3 % Normal 0.0 - 0.9 [facility] Comment on above: Result Comment: Joceline ture Granulocyte Count (IG) includes promyelocytes, myelocytes and metamyelocytes but does not include bands. Percent differential counts (%) should be interpreted in the context of the absolute cell counts (cells/L). Performed By: #### V TDOH #### [facility] [address] [place] [address] Basophils (Bld) [#/Vol] 0.02 10*3/uL Normal 0.00 - 0.10 [facility] Comment on above: Performed By: #### V TDOH #### [facility] [address] [place] [address] Basophils/100 WBC (Bld) 0.5 % Normal 0.0 - 2.0 [facility] Comment on above: Performed By: #### V TDOH #### [facility] [address] [place] [address] Eosinophils (Bld) [#/Vol] 0.12 10*3/uL Normal 0.00 - 0.40 [facility] Comment on above: Performed By: #### V TDOH #### [facility] [address] [place] [address] Eosinophils/100 WBC (Bld) 3.1 % Normal 0.0 - 6.0 [facility] Comment on above: Performed By: #### V TDOH #### [facility] [address] [place] [address] Erythrocyte distribution width (RBC) [Ratio] 15.2 % High 11.5 - 14.5 [facility] Comment on above: Performed By: #### V TDOH #### [facility] [address] [place] [address] Hematocrit (Bld) [Volume fraction] 35.1 % Low 36.0 - 46.0 [facility] Comment on above: Performed By: #### V TDOH #### [facility] [address] [place] [address] Hemoglobin (Bld) [Mass/Vol] 11.2 g/dL Low 12.0 - 16.0 [facility] Comment on above: Performed By: #### V TDOH #### [facility] [address] [place] [address] Lymphocytes (Bld) [#/Vol] 1.19 10*3/uL Normal 0.80 - 3.00 [facility] Comment on above: Performed By: #### V TDOH #### [facility] [address] [place] [address] Lymphocytes/100 WBC (Bld) 30.7 % Normal 13.0 - 44.0 [facility] Comment on above: Performed By: #### V TDOH #### [facility] [address] [place] [address] MCHC (RBC) [Mass/Vol] 31.9 g/dL Low 32.0 - 36.0 [facility] Comment on above: Performed By: #### V TDOH #### [facility] [address] [place] [address] MCV (RBC) [Entitic vol] 90 fL Normal 80 - 100 [facility] Comment on above: Performed By: #### V TDOH #### [facility] [address] [place] [address] Monocytes (Bld) [#/Vol] 0.61 10*3/uL Normal 0.05 - 0.80 [facility] Comment on above: Performed By: #### V TDOH #### [facility] [address] [place] [address] Monocytes/100 WBC (Bld) 15.7 % Normal 2.0 - 10.0 [facility] Comment on above: Performed By: #### V TDOH #### [facility] [address] [place] [address] Neutrophils (Bld) [#/Vol] 1.93 10*3/uL Normal 1.60 - 5.50 [facility] Comment on above: Performed By: #### V TDOH #### [facility] [address] [place] [address] Neutrophils/100 WBC (Bld) 49.7 % Normal 40.0 - 80.0 [facility] Comment on above: Performed By: #### V TDOH #### [facility] [address] [place] [address] Nucleated RBC/100 WBC (Bld) [Ratio] 0.0 /100 WBC Normal 0.0-0.0 [facility] Comment on above: Performed By: #### V TDOH #### [facility] [address] [place] [address] Platelets (Bld) [#/Vol] 169 10*3/uL Normal 150 - 450 [facility] Comment on above: Performed By: #### V TDOH #### [facility] [address] [place] [address] RBC (Bld) [#/Vol] 3.89 x10E12/L Low 4.00 - 5.20 [facility] Comment on above: Performed By: #### V TDOH #### [facility] [address] [place] [address] WBC (Bld) [#/Vol] 3.9 10*3/uL Low 4.4 - 11.3 [facility] Comment on above: Performed By: #### V TDOH #### [facility] [address] [place] [address] FERRITINon 07-19-2019 Ferritin [Mass/Vol] 99 ug/L Normal 8 - 150 [facility] Comment on above: Performed By: #### V TDOH #### [facility] [address] [place] [address] FOLATE, SERUMon 07-19-2019 Folate [Mass/Vol] 23.2 ng/mL Normal >5.0 [facility] Comment on above: Result Comment: Low <3.4 Borderline 3.4-5.0 Normal >5.0 . Biotin interference may cause falsely elevated results. Patients taking a Biotin dose of up to 5 mg/day should refrain from taking Biotin for 24 hours before sample collection. Providers may contact their local laboratory for further information. Performed By: #### P TH #### [facility] [address] [place] [address] IRON + TIBCon 07-19-2019 % SATURATION 23 % Low 25 - 45 [facility] Comment on above: Performed By: #### V TDOH #### [facility] [address] [place] [address] Iron [Mass/Vol] 56 ug/dL Normal 35 - 150 [facility] [facility] Comment on above: Performed By: #### V TDOH #### [facility] [address] [place] [address] TIBC 243 ug/dL Normal 240 - 445 [facility] Comment on above: Performed By: #### V TDOH #### [facility] [address] [place] [address] RENAL FUNCTION PANELon 07-18 Albumin [Mass/Vol] 4.0 g/dL Normal 3.4 - 5.0 [facility] Comment on above: Performed By: #### V TDOH #### [facility] [address] [place] [address] Anion gap [Moles/Vol] 18 mmol/L Normal 10 - 20 [facility] Comment on above: Performed By: #### V TDOH #### [facility] [address] [place] [address] Calcium [Mass/Vol] 9.7 mg/dL Normal 8.6 - 10.6 [facility] Comment on above: Performed By: #### V TDOH #### [facility] [address] [place] [address] Chloride [Moles/Vol] 108 mmol/L High 98 - 107 [facility] Comment on above: Performed By: #### V TDOH #### [facility] [address] [place] [address] Creatinine [Mass/Vol] 1.76 mg/dL High 0.50 - 1.05 [facility] Comment on above: Performed By: #### V TDOH #### [facility] [address] [place] [address] GFR- AM. 34 mL/min/1.73m2 Abnormal >60 [facility] Comment on above: Result Comment: CALC ULATIONS OF ESTIMATED GFR ARE PERFORMED USING THE MDRD STUDY EQUATION FOR THE IDMS-TRACEABLE CREATININE METHODS. CLIN CHEM 2007;53:766-72 Performed By: #### V TDOH #### [facility] [address] [place] [address] GFR-NON AM. 28 mL/min/1.73m2 Abnormal >60 [facility] Comment on above: Performed By: #### V TDOH #### [facility] [address] [place] [address] Glucose [Mass/Vol] 83 mg/dL Normal 74 - 99 [facility] Comment on above: Performed By: #### V TDOH #### [facility] [address] [place] [address] HCO3 (Bld) [Moles/Vol] 22 mmol/L Normal 21 - 32 [facility] Comment on above: Performed By: #### V TDOH #### [facility] [address] [place] [address] Phosphate [Mass/Vol] 3.8 mg/dL Normal 2.5 - 4.9 [facility] Comment on above: Result Comment: The performance characteristics of phosphorus testing in heparinized plasma have been validated by the individual laboratory site where testing is performed. Testing on heparinized plasma is not approved by the FDA; however, such approval is not necessary. Performed By: #### V TDOH #### [facility] [address] [place] [address] Potassium [Moles/Vol] 4.2 mmol/L Normal 3.5 - 5.3 [facility] Comment on above: Performed By: #### V TDOH #### [facility] [address] [place] [address] Sodium [Moles/Vol] 144 mmol/L Normal 136 - 145 [facility] Comment on above: Performed By: #### V TDOH #### [facility] [address] [place] [address] Urea nitrogen [Mass/Vol] 37 mg/dL High 6 - 23 [facility] Comment on above: Performed By: #### V TDOH #### [facility] [address] [place] [address] VITAMIN B12on 07-19-2019 Cobalamin (Vitamin B12) [Mass/Vol] 974 pg/mL High 211 - 911 [facility] Comment on above: Performed By: #### P TH #### [facility] [address] [place] [address] VITAMIN D, 25-HYDROXYon -0 VITAMIN D, 25-HYDROXY 60 ng/mL Normal [facility] Comment on above: Result Comment: . DEFICIENCY: < 20 NG/ML INSUFFICIENCY: 20-29 NG/ML SUFFICIENCY: 30-100 NG/ML THIS ASSAY ACCURATELY QUANTIFIES THE SUM OF VITAMIN D3, 25-HYDROXY AND VIT D2,25-HYDROXY. Performed By: #### P TH #### [facility] [address] [place] [address] US RENAL BILATon 06-14-2019 US RENAL BILAT Patient Name: CYNDI LOUIS STUDY: US RENAL BILAT; 06/14/2019 1:27 pm INDICATION: Renal cysts. COMPARISON: None. ACCESSION NUMBER(S): [id number] ORDERING CLINICIAN: MANISHA PIMENTEL TECHNIQUE: Multiple images of the kidneys were obtained . FINDINGS: RIGHT KIDNEY: Right kidney measures approximately 10.6 cm. There is no pole cyst measuring 1.9 x 1.5 x 1.8 cm and a midpole cyst measuring 1.6 x 1.6 x 1.4 cm. Right kidney is otherwise negative. No hydronephrosis. LEFT KIDNEY: Left kidney measures approximately 11.4 cm. Cyst in the upper pole measures 4.4 x 4.6 x 4.9 cm. Lower pole cyst measures 2.5 x 3.1 x 2.6 cm. An adjacent lower pole cyst measures 2.6 x 2.4 x 2.5 cm and a small 1.4 cm cyst was seen in the midpole. There is no hydronephrosis. BLADDER: The urinary bladder is distended and grossly negative. IMPRESSION: Multiple cysts in both kidneys. No hydronephrosis. Electronically signed by: SABRA PALMER MD [facility] VAS LAB Renal Artery Ultras oundon 02-15-2019 [facility] Renal Artery Ultrasound [place] [address] and Vascular Lab Report Renal Artery Ultrasound Patient Name: CYNDINALINI Torres Physician: [id number] Chris Pang MD Study Date: 02/15/2019 Referring Physician: Jama Mendoza MD MRN/PID: [id number] PCP: Accession/Order#: [id number] CC Report to: Date of : 08/18/1945 Technologist: Casey Vega RVT, RDMS Gender: F Technologist 2: Admission Status: Outpatient Location Performed: [facility] Diagnosis/ICD: I15.0-Renovascular hypertension Procedure/CPT: 84524 Abdominal Visceral Renal-[id number] CONCLUSIONS: Right Renal Artery: Right renal arteries demonstrate no evidence of hemodynamically significant stenosis. The right renal veins are widely patent. Single renal cyst documented in the right kidney. Left Renal Artery: Left renal arteries demonstrate no evidence of hemodynamically significant stenosis. The left renal veins are widely patent. Multiple renal cysts documented in the left kidney. Additional Findings: Imaging & Doppler Findings: Renal Artery Duplex Right Kidney: 11.6 cm Left Kidney: Systolic Diastolic ARTERY Systolic Diastolic 100 cm/s 11 cm/s Origin 94 cm/s 14 cm/s 109 cm/s 8 cm/s Prox 76 cm/s 10 cm/s 113 cm/s 10 cm/s Mid 84 cm/s 11 cm/s 80 cm/s 12 cm/s Distal 62 cm/s 8 cm/s 16 cm/s 4 cm/s Superior 15 cm/s 5 cm/s 17 cm/s 5 cm/s Inferior 16 cm/s 4 cm/s Right Left 0.9 R/A Ratio 0.8 0.7 Resistive Index 0.7 Right Left Renal Cyst 1.7 cm 4.8 cm Ao Dist Diam 2 cm Mid Ao 119 cm/s 28833 Chris Pang MD Final Normal [facility] ALBUMIN, URINE SPOTon 2018 ALBUMIN,URINE 7.4 mg/L Normal Not Established [facility] Comment on above: Performed By: #### P TH #### [facility] [address] [place] [id number] ALBUMIN/CREAT RATIO 16.1 ug/mg box spinner Normal 0.0 - 30.0 [facility] Comment on above: Performed By: #### P TH #### [facility] [address] [place] [address] CREATININE,URINE 45.9 mg/dL Normal 20.0 - 320.0 [facility] Comment on above: Performed By: #### P TH #### [facility] [address] [place] [address] CBC AND DIFFERENTIALon 02-03 % AUTOMATED IMMATURE GRAN 0.2 % Normal 0.0 - 0.9 [facility] Comment on above: Result Comment: Perc ent differential counts (%) should be interpreted in the context of the absolute cell counts (cells/L). Performed By: #### P TH #### [facility] [address] [place] [address] Basophils (Bld) [#/Vol] 0.03 10*3/uL Normal 0.00 - 0.10 [facility] Comment on above: Performed By: #### P TH #### [facility] [address] [place] [address] Basophils/100 WBC (Bld) 0.7 % Normal 0.0 - 2.0 [facility] Comment on above: Performed By: #### P TH #### [facility] [address] [place] [address] Eosinophils (Bld) [#/Vol] 0.10 10*3/uL Normal 0.00 - 0.40 [facility] Comment on above: Performed By: #### P TH #### [facility] [address] [place] [address] Eosinophils/100 WBC (Bld) 2.4 % Normal 0.0 - 6.0 [facility] Comment on above: Performed By: #### P TH #### [facility] [address] [place] [address] Erythrocyte distribution width (RBC) [Ratio] 14.8 % High 11.5 - 14.5 [facility] Comment on above: Performed By: #### P TH #### [facility] [address] [place] [address] Hematocrit (Bld) [Volume fraction] 33.1 % Low 36.0 - 46.0 [facility] Comment on above: Performed By: #### P TH #### [facility] [address] [place] [address] Hemoglobin (Bld) [Mass/Vol] 10.1 g/dL Low 12.0 - 16.0 [facility] Comment on above: Performed By: #### P TH #### [facility] [address] [place] [address] Lymphocytes (Bld) [#/Vol] 1.02 10*3/uL Normal 0.80 - 3.00 [facility] Comment on above: Performed By: #### P TH #### [facility] [address] [place] [address] Lymphocytes/100 WBC (Bld) 24.7 % Normal 13.0 - 44.0 [facility] Comment on above: Performed By: #### P TH #### [facility] [address] [place] [address] MCHC (RBC) [Mass/Vol] 30.5 g/dL Low 32.0 - 36.0 [facility] Comment on above: Performed By: #### P TH #### [facility] [address] [place] [address] MCV (RBC) [Entitic vol] 91 fL Normal 80 - 100 [facility] Comment on above: Performed By: #### P TH #### [facility] [address] [place] [address] Monocytes (Bld) [#/Vol] 0.83 10*3/uL High 0.05 - 0.80 [facility] Comment on above: Performed By: #### P TH #### [facility] [address] [place] [address] Monocytes/100 WBC (Bld) 20.1 % Normal 2.0 - 10.0 [facility] Comment on above: Performed By: #### P TH #### [facility] [address] [place] [address] Neutrophils (Bld) [#/Vol] 2.14 10*3/uL Normal 1.60 - 5.50 [facility] Comment on above: Performed By: #### P TH #### [facility] [address] [place] [address] Neutrophils/100 WBC (Bld) 51.9 % Normal 40.0 - 80.0 [facility] Comment on above: Performed By: #### P TH #### [facility] [address] [place] [address] Nucleated RBC/100 WBC (Bld) [Ratio] 0.0 /100 WBC Normal 0.0-0.0 [facility] Comment on above: Performed By: #### P TH #### [facility] [address] [place] [address] Platelets (Bld) [#/Vol] 167 10*3/uL Normal 150 - 450 [facility] Comment on above: Performed By: #### P TH #### [facility] [address] [place] [address] RBC (Bld) [#/Vol] 3.62 x10E12/L Low 4.00 - 5.20 [facility] Comment on above: Performed By: #### P TH #### [facility] [address] [place] [address] WBC (Bld) [#/Vol] 4.1 10*3/uL Low 4.4 - 11.3 [facility] Comment on above: Performed By: #### P TH #### [facility] [address] [place] [address] MAGNESIUMon 02-03-2019 Magnesium [Mass/Vol] 2.34 mg/dL Normal 1.60 - 2.40 [facility] Comment on above: Performed By: #### P TH #### [facility] [address] [place] [address] RENAL FUNCTION PANELon 02-03 Albumin [Mass/Vol] 4.0 g/dL Normal 3.4 - 5.0 [facility] Comment on above: Performed By: #### P TH #### [facility] [address] [place] [address] Anion gap [Moles/Vol] 11 mmol/L Normal 10 - 20 [facility] Comment on above: Performed By: #### P TH #### [facility] [address] [place] [address] Calcium [Mass/Vol] 9.5 mg/dL Normal 8.6 - 10.6 [facility] Comment on above: Performed By: #### P TH #### [facility] [address] [place] [address] Chloride [Moles/Vol] 105 mmol/L Normal 98 - 107 [facility] Comment on above: Performed By: #### P TH #### [facility] [address] [place] [address] Creatinine [Mass/Vol] 1.80 mg/dL High 0.50 - 1.05 [facility] Comment on above: Performed By: #### P TH #### [facility] [address] [place] [address] GFR- AM. 34 mL/min/1.73m2 Abnormal >60 [facility] Comment on above: Result Comment: CALC ULATIONS OF ESTIMATED GFR ARE PERFORMED USING THE MDRD STUDY EQUATION FOR THE IDMS-TRACEABLE CREATININE METHODS. CLIN CHEM 2007;53:766-72 Performed By: #### P TH #### [facility] [address] [place] [address] GFR-NON AM. 28 mL/min/1.73m2 Abnormal >60 [facility] Comment on above: Performed By: #### P TH #### [facility] [address] [place] [address] Glucose [Mass/Vol] 82 mg/dL Normal 74 - 99 [facility] Comment on above: Performed By: #### P TH #### [facility] [address] [place] [address] HCO3 (Bld) [Moles/Vol] 28 mmol/L Normal 21 - 32 [facility] Comment on above: Performed By: #### P TH #### [facility] [address] [place] [address] Phosphate [Mass/Vol] 4.2 mg/dL Normal 2.5 - 4.9 [facility] Comment on above: Result Comment: The performance characteristics of phosphorus testing in heparinized plasma have been validated by the individual laboratory site where testing is performed. Testing on heparinized plasma is not approved by the FDA; however, such approval is not necessary. Performed By: #### P TH #### [facility] [address] [place] [address] Potassium [Moles/Vol] 4.7 mmol/L Normal 3.5 - 5.3 [facility] Comment on above: Performed By: #### P TH #### [facility] [address] [place] [address] Sodium [Moles/Vol] 139 mmol/L Normal 136 - 145 [facility] Comment on above: Performed By: #### P TH #### [facility] [address] [place] [address] Urea nitrogen [Mass/Vol] 47 mg/dL High 6 - 23 [facility] Comment on above: Performed By: #### P TH #### [facility] [address] [place] [address] URIC ACIDon 02-03-2019 Urate [Mass/Vol] 7.4 mg/dL High 2.3 - 6.7 [facility] Comment on above: Result Comment: Mckenna puncture immediately after or during the administration of Metamizole may lead to falsely low results. Testing should be performed immediately prior to Metamizole dosing. Performed By: #### P TH #### [facility] [address] [place] [address] VITAMIN D, 25-HYDROXYon 01-13 VITAMIN D, 25-HYDROXY 40 ng/mL Normal [facility] Comment on above: Result Comment: . DEFICIENCY: < 20 NG/ML INSUFFICIENCY: 20-29 NG/ML OPTIMUM LEVEL: 30-80 NG/ML POSSIBLE TOXICITY: > 80 NG/ML THIS ASSAY ACCURATELY QUANTIFIES THE SUM OF VITAMIN D3, 25-HYDROXY AND VIT D2,25-HYDROXY. Performed By: #### V TDOH #### [facility] [address] [place] [address] CBCon 01-13-2019 Erythrocyte distribution width (RBC) [Ratio] 14.9 % High 11.5 - 14.5 [facility] Comment on above: Performed By: #### C BC #### [facility] [address] [place] [address] Hematocrit (Bld) [Volume fraction] 33.5 % Low 36.0 - 46.0 [facility] Comment on above: Performed By: #### C BC #### [facility] [address] [place] [address] Hemoglobin (Bld) [Mass/Vol] 10.0 g/dL Low 12.0 - 16.0 [facility] Comment on above: Performed By: #### C BC #### [facility] [address] [place] [address] MCHC (RBC) [Mass/Vol] 29.9 g/dL Low 32.0 - 36.0 [facility] Comment on above: Performed By: #### C BC #### [facility] [address] [place] [address] MCV (RBC) [Entitic vol] 92 fL Normal 80 - 100 [facility] Comment on above: Performed By: #### C BC #### [facility] [address] [place] [address] Nucleated RBC/100 WBC (Bld) [Ratio] 0.0 /100 WBC Normal 0.0-0.0 [facility] Comment on above: Performed By: #### C BC #### [facility] [address] [place] [address] Platelets (Bld) [#/Vol] 177 10*3/uL Normal 150 - 450 [facility] Comment on above: Performed By: #### C BC #### [facility] [address] [place] [address] RBC (Bld) [#/Vol] 3.64 x10E12/L Low 4.00 - 5.20 [facility] Comment on above: Performed By: #### C BC #### [facility] [address] [place] [address] WBC (Bld) [#/Vol] 4.0 10*3/uL Low 4.4 - 11.3 [facility] Comment on above: Performed By: #### C BC #### [facility] [address] [place] [address] FERRITINon 01-13-2019 Ferritin [Mass/Vol] 132 ug/L Normal 8 - 150 [facility] Comment on above: Performed By: #### F ERRI #### [facility] [address] [place] [address] IRON + TIBCon 01-13-2019 % SATURATION 23 % Low 25 - 45 [facility] Comment on above: Performed By: #### I RONT #### [facility] [address] [place] [address] Iron [Mass/Vol] 56 ug/dL Normal 35 - 150 [facility] Comment on above: Performed By: #### I RONT #### [facility] [address] [place] [address] TIBC 247 ug/dL Normal 240 - 445 [facility] Comment on above: Performed By: #### I GALILEO #### [facility] [address] [place] [address] PARATHYROID HORMONE,INTACTon 01-13-2019 PARATHYROID HORMONE,INTACT 106.2 pg/mL High 18.5 - 88.0 [facility] Comment on above: Result Comment: Basia ents receiving more than 5 mg/day of biotin may have interference in test results. A sample should be taken no sooner than eight hours after previous dose. Contact the testing laboratory for additional information. Performed By: #### P TH #### [facility] [address] [place] [address] RENAL FUNCTION PANELon 01-13 Albumin [Mass/Vol] 4.0 g/dL Normal 3.4 - 5.0 [facility] Comment on above: Performed By: #### R ENAL #### [facility] [address] [place] [address] Anion gap [Moles/Vol] 14 mmol/L Normal 10 - 20 [facility] Comment on above: Performed By: #### R ENAL #### [facility] [address] [place] [address] Calcium [Mass/Vol] 9.4 mg/dL Normal 8.6 - 10.6 [facility] Comment on above: Performed By: #### R ENAL #### [facility] [address] [place] [address] Chloride [Moles/Vol] 105 mmol/L Normal 98 - 107 [facility] Comment on above: Performed By: #### R ENAL #### [facility] [address] [place] [address] Creatinine [Mass/Vol] 2.06 mg/dL High 0.50 - 1.05 [facility] Comment on above: Performed By: #### R ENAL #### [facility] [address] [place] [address] GFR- AM. 29 mL/min/1.73m2 Abnormal >60 [facility] Comment on above: Result Comment: CALC ULATIONS OF ESTIMATED GFR ARE PERFORMED USING THE MDRD STUDY EQUATION FOR THE IDMS-TRACEABLE CREATININE METHODS. CLIN CHEM 2007;53:766-72 Performed By: #### R ENAL #### [facility] [address] [place] [address] GFR-NON AM. 24 mL/min/1.73m2 Abnormal >60 [facility] Comment on above: Performed By: #### R ENAL #### [facility] [address] [place] [address] Glucose [Mass/Vol] 85 mg/dL Normal 74 - 99 [facility] Comment on above: Performed By: #### R ENAL #### [facility] [address] [place] [address] HCO3 (Bld) [Moles/Vol] 25 mmol/L Normal 21 - 32 [facility] Comment on above: Performed By: #### R ENAL #### [facility] [address] [place] [address] Phosphate [Mass/Vol] 4.0 mg/dL Normal 2.5 - 4.9 [facility] Comment on above: Result Comment: The performance characteristics of phosphorus testing in heparinized plasma have been validated by the individual laboratory site where testing is performed. Testing on heparinized plasma is not approved by the FDA; however, such approval is not necessary. Performed By: #### R ENAL #### [facility] [address] [place] [address] Potassium [Moles/Vol] 4.8 mmol/L Normal 3.5 - 5.3 [facility] Comment on above: Performed By: #### R ENAL #### [facility] [address] [place] [address] Sodium [Moles/Vol] 139 mmol/L Normal 136 - 145 [facility] Comment on above: Performed By: #### R ENAL #### [facility] [address] [place] [address] Urea nitrogen [Mass/Vol] 43 mg/dL High 6 - 23 [facility] Comment on above: Performed By: #### R ENAL #### [facility] [address] [place] [address] RENAL FUNCTION PANELon 10-23 Albumin [Mass/Vol] 4.1 g/dL Normal 3.4 - 5.0 [facility] Comment on above: Performed By: #### R ENAL #### [facility] [address] [place] [address] Anion gap [Moles/Vol] 16 mmol/L Normal 10 - 20 [facility] Comment on above: Performed By: #### R ENAL #### [facility] [address] [place] [address] Calcium [Mass/Vol] 9.8 mg/dL Normal 8.6 - 10.6 [facility] Comment on above: Performed By: #### R ENAL #### [facility] [address] [place] [address] Chloride [Moles/Vol] 108 mmol/L High 98 - 107 [facility] Comment on above: Performed By: #### R ENAL #### [facility] [address] [place] [address] Creatinine [Mass/Vol] 2.02 mg/dL High 0.50 - 1.05 [facility] Comment on above: Performed By: #### R ENAL #### [facility] [address] [place] [address] GFR- AM. 29 mL/min/1.73m2 Abnormal >60 [facility] Comment on above: Result Comment: CALC ULATIONS OF ESTIMATED GFR ARE PERFORMED USING THE MDRD STUDY EQUATION FOR THE IDMS-TRACEABLE CREATININE METHODS. CLIN CHEM 2007;53:766-72 Performed By: #### R ENAL #### [facility] [address] [place] [address] GFR-NON AM. 24 mL/min/1.73m2 Abnormal >60 [facility] Comment on above: Performed By: #### R ENAL #### [facility] [address] [place] [address] Glucose [Mass/Vol] 107 mg/dL High 74 - 99 [facility] Comment on above: Performed By: #### R ENAL #### [facility] [address] [place] [address] HCO3 (Bld) [Moles/Vol] 22 mmol/L Normal 21 - 32 [facility] Comment on above: Performed By: #### R ENAL #### [facility] [address] [place] [address] Phosphate [Mass/Vol] 4.2 mg/dL Normal 2.5 - 4.9 [facility] Comment on above: Result Comment: The performance characteristics of phosphorus testing in heparinized plasma have been validated by the individual laboratory site where testing is performed. Testing on heparinized plasma is not approved by the FDA; however, such approval is not necessary. Performed By: #### R ENAL #### [facility] [address] [place] [address] Potassium [Moles/Vol] 4.6 mmol/L Normal 3.5 - 5.3 [facility] Comment on above: Performed By: #### R ENAL #### [facility] [address] [place] [address] Sodium [Moles/Vol] 141 mmol/L Normal 136 - 145 [facility] Comment on above: Performed By: #### R ENAL #### [facility] [address] [place] [address] Urea nitrogen [Mass/Vol] 47 mg/dL High 6 - 23 [facility] Comment on above: Performed By: #### R ENAL #### [facility] [address] [place] [address] VITAMIN D, 25-HYDROXYon 10-12 VITAMIN D, 25-HYDROXY 36 ng/mL Normal [facility] Comment on above: Result Comment: . DEFICIENCY: < 20 NG/ML INSUFFICIENCY: 20-29 NG/ML OPTIMUM LEVEL: 30-80 NG/ML POSSIBLE TOXICITY: > 80 NG/ML THIS ASSAY ACCURATELY QUANTIFIES THE SUM OF VITAMIN D3, 25-HYDROXY AND VIT D2,25-HYDROXY. Performed By: #### V TDOH #### [facility] [address] [place] [address] PARATHYROID HORMONE,INTACTon 10-22-2018 PARATHYROID HORMONE,INTACT 75.3 pg/mL Normal 18.5 - 88.0 [facility] Comment on above: Result Comment: Basia ents receiving more than 5 mg/day of biotin may have interference in test results. A sample should be taken no sooner than eight hours after previous dose. Contact the testing laboratory for additional information. Performed By: #### P TH #### [facility] [address] [place] [address] SHOULDER, CMPLT MIN 2 VIEWSo n 08-14-2018 SHOULDER, CMPLT MIN 2 VIEWS Patient Name: CYNDI LOUIS STUDY: BN SHOULDER, CMPLT, MIN 2 VIEWS; 08/14/2018 11:28 am INDICATION: right shoulder pain. 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 No fracture identified. No dislocation. IMPRESSION: Right acromioclavicular osteoarthritis with subacromial spur. Electronically signed by: JOSE SURESH MD Normal [facility] Vital Signs Date Time Vital Sign Value Performing Clinician Facility 07-27-2023 16:47-0400 Respiratory rate 16 /min [email or web address] Dept Work Phone: [facility] 07-27-2023 15:30-0400 Body temperature 97.1 [degF] [email or web address] Dept Work Phone: [facility] 07-27-2023 15:30-0400 Diastolic blood pressure 73 mm[Hg] [email or web address] [facility] Work Phone: [facility] 07-27-2023 15:30-0400 Heart rate 90 /min [employer] Work Phone: [facility] 07-27-2023 15:30-0400 SaO2% (BldA) [Mass fraction] 100 % [employer] Work Phone: [facility] 07-27-2023 15:30-0400 Systolic blood pressure 110 mm[Hg] [email or web address] [facility] Work Phone: [facility] 07-27-2023 15:11-0400 Body height 162.56 cm [employer] Dept Work Phone: [facility] 07-27-2023 15:11-0400 Body weight 56.69 kg [employer] Work Phone: [facility] 03-30-2022 04:46-0500 Diastolic blood pressure 65 mm[Hg] Woodrow Sanchez [facility] 03-30-2022 04:46-0500 Heart rate 67 /min Woodrow Daniel [facility] 03-30-2022 04:46-0500 Mean blood pressure 81 mm[Hg] Woodrow Daniel [facility] 03-30-2022 04:46-0500 Respiratory rate 16 /min Woodrow Daniel [facility] 03-30-2022 04:46-0500 SaO2% (BldA) [Mass fraction] 98 % Woodrow Daniel [facility] 03-30-2022 04:46-0500 Systolic blood pressure 113 mm[Hg] Woodrow Daniel [facility] 03-30-2022 02:31-0500 Body temperature 98.6 [degF] Woodrow Daniel [facility] 03-30-2022 02:31-0500 Diastolic blood pressure 76 mm[Hg] Woodrow Daniel [facility] 03-30-2022 02:31-0500 Heart rate 74 /min Woodrow Daniel [facility] 03-30-2022 02:31-0500 Respiratory rate 22 /min Woodrow Daniel [facility] 03-30-2022 02:31-0500 SaO2% (BldA) [Mass fraction] 100 % Woodrow Sanchez [facility] 03-30-2022 02:31-0500 Systolic blood pressure 120 mm[Hg] Woodrow Sanchez [facility] 02-04-2022 21:47-0400 Body temperature 98.06 [degF] Jermei Renuka [facility] 02-04-2022 21:47-0400 Diastolic blood pressure 76 mm[Hg] Jeremi Renuka [facility] 02-04-2022 21:47-0400 Heart rate 84 /min Jeremi Renuka [facility] 02-04-2022 21:47-0400 Respiratory rate 18 /min Jeremi Renuka [facility] 02-04-2022 21:47-0400 SaO2% (BldA) [Mass fraction] 100 % Jeremi Renuka [facility] 02-04-2022 21:47-0400 Systolic blood pressure 109 mm[Hg] Jeremi Renuka [facility] Encounters Encounter Date Encounter Type Care Provider Facility Start: 07-27-2023 End: 07-27-2023 ambulatory [facility] Dept Facility:[facility] Start: 07-27-2023 End: 07-27-2023 ambulatory [email or web address] Work Phone: [facility] Work Phone: Start: 07-27-2023 End: 07-27-2023 Patient encounter [email or web address] Work Phone: [facility] Labor - O/P Start: 05-21-2023 End: 05-21-2023 ambulatory [email or web address] Facility:[facility] Start: 05-21-2023 End: 05-21-2023 ambulatory PHYSICIAN NO [facility] Work Phone: Start: 05-21-2023 End: 05-21-2023 Patient encounter procedure PHYSICIAN NO [facility] Work Phone: Start: 04-09-2023 End: 04-09-2023 ambulatory PHYSICIAN NO FAMILY Facility:[facility] Start: 04-09-2023 End: 04-09-2023 ambulatory PHYSICIAN NO [facility] Work Phone: Start: 04-09-2023 End: 04-09-2023 Patient encounter procedure PHYSICIAN NO [facility] Work Phone: Start: 10-17-2022 End: 10-18-2022 ambulatory Genaro Troy Facility:[facility] Start: 10-17-2022 End: 10-17-2022 Patient encounter procedure Genaro Troy [facility] Start: 03-30-2022 End: 03-30-2022 Emergency department patient visit Woodrow Sanchez Facility:[facility] Start: 03-30-2022 End: 03-30-2022 Emergency department patient visit Woodrow Sanchez [facility] Start: 02-04-2022 End: 02-05-2022 Emergency department patient visit Jeremi Grayson Facility:[facility] Start: 02-04-2022 End: 02-04-2022 Emergency department patient visit Jeremi Grayson [facility] Start: 12-23-2017 Patient encounter Melodie tsang Facility:[id number] Start: 10-21-2017 Patient encounter Melodie Floresallyson tsang Facility:[id number] Procedures Date Procedure Procedure Detail Performing Clinician Start: 05-21-2023 Diagnostic ultrasoun d of gravid uterus PHYSICIAN NO FAMILY Start: 04-09-2023 Diagnostic ultrasoun d of gravid uterus PHYSICIAN NO FAMILY None (qualifier value) Jeremi Grayson Plan of Treatment Date Care Activity Detail Author Start: 07-27-2023 [facility] Start: 07-27-2023 Hospital admission [facility] Start: 07-27-2023 End: 07-27-2023 [facility] Patient Education Antepartum Dis charge Instructions ([facility]) [facility] Work Phone: Patient referral [facility] Work Phone: Payers Date Payer Category Payer Unknown [id number] 2023 Private Health Insurance [id number] 2022 Self-pay 2022 Private Health Insurance [id number] 2001 Unknown [id number] 7 2001 Unknown [id number] 7 2001 Unknown [id number] 7 2001 Unknown [id number] Department of [facility] e ( and others) [facility] [id number] Unknown [id number] 1 Unknown [id number] 1 Unknown [id number] 1 Social History Date Type Detail Facility Tobacco Household tobacc o concerns: Yes. [facility] Tobacco smoking status No Smokin g Status Entered [facility] Sex Assigned At Female [facility] Start: 08-24-2021 End: 08-25-2021 Tobacco smoking status NHIS Smoker (finding) [facility] Start: 2001 Sex Assigned At Female F [facility] Functional Status Date Assessment Result Facility 03-30-2022 Functional Status N/A [facility] 02-04-2022 Functional Status N/A [facility] Evaluation + Plan note 03-30-2022 Note Date & Type Note Facility 03-30-2022 Evaluation + Plan note Extrac alycia from: Title:ED Note Author:Woodrow Sanchez MD Date:03/30 1. Left ear pain (H92.02: [place], left ear) 2. Impacted cerumen of left ear (H61.22: Impacted cerumen, left ear) Orders: azithromycin, 250 mg, Oral, As Directed, # 6 tab(s), Refills(s) 0 carbamide peroxide otic, 5 drop(s), Soln-Otic, Ear-Left, Once, Stop date 03/30/22 2:43:00 EST, STAT, Start date 03/30/22 2:43:00 EST Ear Irrigation [facility] Hospital Discharge instructions 03-30-2022 Note Date & Type Note Facility 03-30-2022 Hospital Discharg e instructions Patient Education 03/30/2022 04:43:30 Earache, Adult Earache, Adult An earache, or ear pain, can be caused by many things, including: An infection. Ear wax buildup. Ear pressure. Something in the ear that should not be there (foreign body). A sore throat. Tooth problems. Jaw problems. Treatment of the earache will depend on the cause. If the cause is not clear or cannot be determined, you may need to watch your symptoms until your earache goes away or until a cause is found. Follow these instructions at home: Pay attention to any changes in your symptoms. Take these actions to help with your pain: Take or apply wkdw-iit-vxrejxo and prescription medicines only as told by your health care provider. If you were prescribed an antibiotic medicine, use it as told by your health care provider. Do not stop using the antibiotic even if you start to feel better. Do not put anything in your ear other than medicine that is prescribed by your health care provider. If directed, apply heat to the affected area as often as told by your health care provider. Use the heat source that your health care provider recommends, such as a moist heat pack or a heating pad. ?Place a towel between your skin and the heat source. ?Leave the heat on for 20 30 minutes. ?Remove the heat if your skin turns bright red. This is especially important if you are unable to feel pain, heat, or cold. You may have a greater risk of getting burned. If directed, put ice on the ear: ?Put ice in a plastic bag. ?Place a towel between your skin and the bag. ?Leave the ice on for 20 minutes, 2 3 times a day. Try resting in an upright position instead of lying down. This may help to reduce pressure in your ear and relieve pain. Chew gum if it helps to relieve your ear pain. Treat any allergies as told by your health care provider. Keep all follow-up visits as told by your health care provider. This is important. Contact a health care provider if: Your pain does not improve within 2 days. Your earache gets worse. You have new symptoms. You have a fever. Get help right away if: You have a severe headache. You have a stiff neck. You have trouble swallowing. You have redness or swelling behind your ear. You have fluid or blood coming from your ear. You have hearing loss. You feel dizzy. This information is not intended to replace advice given to you by your health care provider. Make sure you discuss any questions you have with your health care provider. Document Released: 11/15/2004 Document Revised: 03/13/2018 Document Reviewed: 09/23/2016 Auto I.D. Patient Education 2019 [employer]. Follow Up Care 03/30/2022 02:16:36 With:NAT ORTIZ Address: [address] [place] [address]- Business (1) When:04/02/2022 only if needed [facility] Hospital Discharge instructions 02-05-2022 Note Date & Type Note Facility 02-05-2022 Hospital Discharg e instructions Patient Education 02/04/2022 22:19:21 Vaginal Foreign Body, Idjd-um-Mhxi Vaginal Foreign Body A vaginal foreign body is an object that gets stuck or left in the vagina. This can cause: Light vaginal bleeding. Fluid (discharge) coming from the vagina. This might smell bad or have some blood in it. Itching. Burning. Redness, swelling, or rash near the vagina. Belly (abdominal) pain. Fever. Burning when you pee (urinate). Peeing more often than normal. In most cases, symptoms go away once the object is taken out. In rare cases, an object can break through the enriquez of the vagina. This can cause a very bad infection. Follow these instructions at home: Take ajrq-aoy-ibzuevi and prescription medicines only as told by your doctor. If you were prescribed an antibiotic medicine, take it as told by your doctor. Do not stop taking the antibiotic even if you start to feel better. Do not have sex or use tampons until your doctor approves. Do not douche or use vaginal rinses unless your doctor says this is okay. Keep all follow-up visits as told by your doctor. This is important. Contact a doctor if: You have belly (abdominal) pain. You have pain when you pee. You have a fever. Get help right away if: You have a lot of blood or fluid coming from your vagina. You have very bad belly pain. Summary A vaginal foreign body is any object that gets stuck or left inside the vagina. In most cases, symptoms go away once the object is found and taken out. Do not have sex or use tampons until your doctor approves. This information is not intended to replace advice given to you by your health care provider. Make sure you discuss any questions you have with your health care provider. Document Released: 03/19/2010 Document Revised: 03/13/2018 Document Reviewed: 07/02/2017 Auto I.D. Patient Education 2020 [employer]. 02/04/2022 22:19:21 Health Maintenance, Male Health Maintenance, Male Adopting a healthy lifestyle and getting preventive care are important in promoting health and wellness. Ask your health care provider about: The right schedule for you to have regular tests and exams. Things you can do on your own to prevent diseases and keep yourself healthy. What should I know about diet, weight, and exercise? Eat a healthy diet Eat a diet that includes plenty of vegetables, fruits, low-fat dairy products, and lean protein. Do not eat a lot of foods that are high in solid fats, added sugars, or sodium. Maintain a healthy weight Body mass index (BMI) is a measurement that can be used to identify possible weight problems. It estimates body fat based on height and weight. Your health care provider can help determine your BMI and help you achieve or maintain a healthy weight. Get regular exercise Get regular exercise. This is one of the most important things you can do for your health. Most adults should: Exercise for at least 150 minutes each week. The exercise should increase your heart rate and make you sweat (moderate-intensity exercise). Do strengthening exercises at least twice a week. This is in addition to the moderate-intensity exercise. Spend less time sitting. Even light physical activity can be beneficial. Watch cholesterol and blood lipids Have your blood tested for lipids and cholesterol at 20 years of age, then have this test every 5 years. You may need to have your cholesterol levels checked more often if: Your lipid or cholesterol levels are high. You are older than 40 years of age. You are at high risk for heart disease. What should I know about cancer screening? Many types of cancers can be detected early and may often be prevented. Depending on your health history and family history, you may need to have cancer screening at various ages. This may include screening for: Colorectal cancer. Prostate cancer. Skin cancer. Lung cancer. What should I know about heart disease, diabetes, and high blood pressure? Blood pressure and heart disease High blood pressure causes heart disease and increases the risk of stroke. This is more likely to develop in people who have high blood pressure readings, are of descent, or are overweight. Talk with your health care provider about your target blood pressure readings. Have your blood pressure checked: ?Every 3 5 years if you are 18 39 years of age. ?Every year if you are 40 years old or older. If you are between the ages of 65 and 75 and are a current or former smoker, ask your health care provider if you should have a one-time screening for abdominal aortic aneurysm (AAA). Diabetes Have regular diabetes screenings. This checks your fasting blood sugar level. Have the screening done: Once every three years after age 45 if you are at a normal weight and have a low risk for diabetes. More often and at a younger age if you are overweight or have a high risk for diabetes. What should I know about preventing infection? Hepatitis B If you have a higher risk for hepatitis B, you should be screened for this virus. Talk with your health care provider to find out if you are at risk for hepatitis B infection. Hepatitis C Blood testing is recommended for: Everyone born from 1945 through 1965. Anyone with known risk factors for hepatitis C. Sexually transmitted infections (STIs) You should be screened each year for STIs, including gonorrhea and chlamydia, if: ?You are sexually active and are younger than 24 years of age. ?You are older than 24 years of age and your health care provider tells you that you are at risk for this type of infection. ?Your sexual activity has changed since you were last screened, and you are at increased risk for chlamydia or gonorrhea. Ask your health care provider if you are at risk. Ask your health care provider about whether you are at high risk for HIV. Your health care provider may recommend a prescription medicine to help prevent HIV infection. If you choose to take medicine to prevent HIV, you should first get tested for HIV. You should then be tested every 3 months for as long as you are taking the medicine. Follow these instructions at home: Lifestyle Do not use any products that contain nicotine or tobacco, such as cigarettes, e-cigarettes, and chewing tobacco. If you need help quitting, ask your health care provider. Do not use street drugs. Do not share needles. Ask your health care provider for help if you need support or information about quitting drugs. Alcohol use Do not drink alcohol if your health care provider tells you not to drink. If you drink alcohol: ?Limit how much you have to 0 2 drinks a day. ?Be aware of how much alcohol is in your drink. In the [place] one drink equals one 12 oz bottle of beer (355 mL), one 5 oz glass of wine (148 mL), or one 1 oz glass of hard liquor (44 mL). General instructions Schedule regular health, dental, and eye exams. Stay current with your vaccines. Tell your health care provider if: ?You often feel depressed. ?You have ever been abused or do not feel safe at home. Summary Adopting a healthy lifestyle and getting preventive care are important in promoting health and wellness. Follow your health care provider's instructions about healthy diet, exercising, and getting tested or screened for diseases. Follow your health care provider's instructions on monitoring your cholesterol and blood pressure. This information is not intended to replace advice given to you by your health care provider. Make sure you discuss any questions you have with your health care provider. Document Released: 09/26/2008 Document Revised: 03/24/2019 Document Reviewed: 03/24/2019 Auto I.D. Patient Education 2020 DNART LIMITADA. Follow Up Care 02/04/2022 21:47:40 With:NAT ORTIZ Address: [facility] [address] [place] [address]- Business (1) When:02/07/2022 Comments:Follow-up with your primary care provider in 3 to 5 days. If symptoms worsen, do not improve, or new symptoms arise please report back to emergency department for further evaluation. [facility] Evaluation + Plan note 02-04-2022 Note Date & Type Note Facility 02-04-2022 Evaluation + Plan note Extrac alycia from: Title:ED Note Author:Beau Andrews PA-C te:02/04/22 Encounter for medical screen ing examination (Z13.9: Encounter for screening, unspecified) [facility] Evaluation note Note Date & Type Note Facility [facility] Narrative Note Date & Type Note Facility Hospital course Narrative No data available for this section [facility] Hospital Discharge instructions Note Date & Type Note Facility Hospital Discharge instructions No data available for this section [facility] Progress note Note Date & Type Note Facility Progress note No data available for this section [facility] Summary Purpose Family History No Family History Records FoundNo Family History Records FoundNo Family History Records FoundNo Family History Records FoundNo Family History Records Found Advance Directives No Advanced Directives Records Found Advance Directive Response Recorded Date/ Time Advance Directives No February 3:20pm Advance Directive Response Recorded Date/ Time Advance Directives No February 4:20pm Chief Complaint and Reason for Visit Chief Complaint Z3A.11 Z34.81 Chief Complaint Z3A.11 Z34.81 Z3A.11 Z34.81 Chief Complaint Z3A.11 Z34.81 brought in by squad Additional Source Comments INFORMATION SOURCE (unrecogn ized section and content) DATE CREATED AUTHOR 01/10/2018 [facility] DATE CREATED AUTHOR AUTHOR'S ORGANIZ ATION 07/19/2019 [facility] DATE CREATED AUTHOR AUTHOR'S ORGANIZ ATION 11/05/2019 [employer] DATE CREATED AUTHOR AUTHOR'S ORGANIZ ATION 11/12/2022 [place] [facility] DATE CREATED AUTHOR AUTHOR'S ORGANIZ ATION 08/07/2023 [facility] Patient Care team informatio n (unrecognized section and content) Team Status: Active Member Role Status Dates PHYSICIAN NO FAMILY Primary Care Provider Active Team Status: Inactive Member Role Status Dates PHYSICIAN NO FAMILY Primary Care Provider Active Francisca Ziegler ([facility]) MARY Attending Provider Active Team Status: Active Member Role Status Dates [facility] Primary Care Provider Active Team Status: Inactive Member Role Status Dates PHYSICIAN NO FAMILY Primary Care Provider Active Start: April 09, 2023 End: April 09, 2023 Francisca Ziegler ([facility]) MARY Attending Provider Active Start: April 09, 2023 End: April 09, 2023 Team Status: Inactive Member Role Status Dates Francisca Ziegler ([facility]) MARY Attending Provider Active Start: May 21, 2023 End: May 21, 2023 [facility] Primary Care Provider Active Start: May 21, 2023 End: May 21, 2023 Team Status: Inactive Member Role Status Dates [facility] Primary Care Provider Active Start: July 27, 2023 End: July 27, 2023 Lakhwinder Emerson DO Attending Provider Active Sta rt: July 27, 2023 End: July 27, 2023 Goals (unrecognized section and content) Goals may be documented in a n alternate section FOR RECORDS PERTAINING TO PATIENTS WHO ARE OR HAVE BEEN ENROLLED IN A CHEMICAL DEPENDENCY/SUBSTANCEABUSE PROGRAM, SOME INFORMATION MAY BE OMITTED. This clinical summary was aggregated from multiple sources. Caution should be exercised in using it in the provision of clinical care. This summary normalizes information from multiple sources, and as a consequence, information in this document may materially change the coding, format and clinical context of patient data. In addition, data may be omitted in some cases. CLINICAL DECISIONS SHOULD BE BASED ON THE PRIMARY CLINICAL RECORDS. [employer] provides no warranty or guarantee of the accuracy or completeness of information in this document.
[2023-08-09 02:19] LABS: Bilirubin Urine NEGATIVE (NEGATIVE); Blood Urine LARGE (NEGATIVE); Clarity Urine CLEAR (CLEAR); Color Urine LT. YELLOW (YELLOW); Glucose Urine UA NEGATIVE (NEGATIVE); Ketones Urine NEGATIVE (NEGATIVE); Leukocyte Esterase Urine NEGATIVE (NEGATIVE); Nitrite Urine NEGATIVE (NEGATIVE); Protein Urine NEGATIVE (NEG/TRACE); Urobilinogen Urine 0.2 EU/dL (0.2-1.0)
[2023-08-09 02:22] LABS: Urine Microscopic Indicated YES
[2023-08-09 02:23] VITALS: BP 114/69; PULSE 80
--- NOTE | 2023-08-09 02:24 | US_ITS ---
[address] [address] Patient Name: HARMONY TRAVIS MRN: [facility]:[id number] date: 2000 Sex: F [facility] Accession/Order Number: [id number] Exam Date: 08/09/2023 03:04 Report Date: 08/09/2023 04:15 At the request of: JORGE MINER Procedure: US OB placenta EXAM: US OB cervical length, US OB placenta HISTORY: Vaginal bleeding COMPARISON: None. TECHNIQUE: Transabdominal ultrasound of the gravid uterus was performed using Doppler. A transvaginal examination was also performed. FINDINGS: Transabdominal ultrasound demonstrates a gravid uterus with the fetus in breech position. The cervix is closed measuring up to 4.3 cm. A small amount of fluid is seen within the endocervical canal. The placenta is anterior, and there is no evidence of placenta previa. Suspected placental lakes are noted measuring up to 1.1 x 1.4 x 1.6 cm. Subjectively, there is a normal amount of amniotic fluid. Of note, no measurements were obtained. cardiac activity is noted at a rate of 144 beats per minute. US/US OB placenta IMPRESSION: 1. The cervix is closed measuring up to 4.3 cm in length. There is a small amount of fluid within the endocervical canal. 2. The placenta is anterior without evidence of placenta previa. There are a few suspected placental lakes measuring up to 1.1 x 1.4 x 1.6 cm. Electronically authenticated by: Darron BAEZA Date: 08/09/2023 04:15
--- NOTE | 2023-08-09 02:24 | US_ITS ---
The [address] [address] Patient Name: HARMONY TRAVIS MRN: [facility]:[id number] date: 2000 Sex: F Assigned Patient Location: [facility] Current Patient Location: [facility] Accession/Order Number: [id number] Exam Date: 08/09/2023 03:04 Report Date: 08/09/2023 04:15 At the request of: JORGE MIENR Procedure: US OB cervical length EXAM: US OB cervical length, US OB placenta HISTORY: Vaginal bleeding COMPARISON: None. TECHNIQUE: Transabdominal ultrasound of the gravid uterus was performed using Doppler. A transvaginal examination was also performed. FINDINGS: Transabdominal ultrasound demonstrates a gravid uterus with the fetus in breech position. The cervix is closed measuring up to 4.3 cm. A small amount of fluid is seen within the endocervical canal. The placenta is anterior, and there is no evidence of placenta previa. Suspected placental lakes are noted measuring up to 1.1 x 1.4 x 1.6 cm. Subjectively, there is a normal amount of amniotic fluid. Of note, no measurements were obtained. cardiac activity is noted at a rate of 144 beats per minute. US/US OB cervical length IMPRESSION: 1. The cervix is closed measuring up to 4.3 cm in length. There is a small amount of fluid within the endocervical canal. 2. The placenta is anterior without evidence of placenta previa. There are a few suspected placental lakes measuring up to 1.1 x 1.4 x 1.6 cm. Electronically authenticated by: Darron BAEZA Date: 08/09/2023 04:15
[2023-08-09 02:30] LABS: Amorphous Sediment Urine RARE; Bacteria Urine TRACE #/HPF (NONE SEEN); Cast Seen? NONE SEEN #/LPF (NONE SEEN); Crystals Seen? Seen #/HPF (None Seen); Mucus Urine NONE SEEN (NONE SEEN); Squamous Epithelial Cell Urine FEW #/LPF (NONE/RARE); Urine Culture Indicated NO; WBC Urine 0-2 #/HPF (NONE SEEN)
--- NOTE | 2023-08-09 02:35 | PC.NURSE ---
0220- Called clerical receptionist US medic technician to come in for US.
[2023-08-09 02:41] LABS: Amphetamine Screen Urine NEGATIVE (NEGATIVE); Cannabinoid Screen Urine NEGATIVE (NEGATIVE); Cocaine Screen Urine NEGATIVE (NEGATIVE); Methamphetamines Screen Urine NEGATIVE (NEGATIVE); Opiate Screen Urine NEGATIVE (NEGATIVE); Phencyclidine Screen Urine NEGATIVE (NEGATIVE)
[2023-08-09 02:42] LABS: Barbiturates Screen Urine NEGATIVE (NEGATIVE); Benzodiazepines Screen Urine NEGATIVE (NEGATIVE); Buprenorphine Screen Urine NEGATIVE (NEGATIVE); Methadone Screen Urine NEGATIVE (NEGATIVE); Oxycodone Screen Urine NEGATIVE (NEGATIVE); Tricyclic Antidepressant Urine NEGATIVE (NEGATIVE)
--- NOTE | 2023-08-09 04:34 | PC.NURSE ---
Plan of care discussed with patient. Patient states understanding, questions answers. Patient transferred to room 254.
[2023-08-09 05:12] VITALS: TEMP 35.8
--- NOTE | 2023-08-09 07:30 | PC.NURSE ---
Report given to Renu Koehler RN.
[2023-08-09 09:55] VITALS: BP 100/57; PULSE 69
--- NOTE | 2023-08-09 11:06 | PM.OBHP ---
OB - H&P: HPI History of Present Illness Chief complaint: bleeding 31 weeks : 1 Para: 0 Date of last menstrual period: 01/03/24 Gestational age based on last menstrual period: 31.1 weels Narrative: PATIENT WORKS AT [employer]. WENT TO THE BATHROOM AND WHEN WIPED SHE HAD WHAT SHE DESCRIBED A LARGE AMOUNT OF BLOOD ON TISSUE. SHE ALSO HAD CRAMPING. SHE WAS IN [place] WITH HER BOYFRIEND AND CAME TO [place]. HER PRACTITIONER HOWEVER IS IN [place] AND WILL BE DELIVERING AT [facility]. THIS WAS THE FIRST OCCURRENCE OF BLEEDING IN THIS . SHE DENIED LOSS OF FLUID AND STATED THE BABY WAS MOVING WELL. SHE DID NOT BELIEVE SHE WAS TOLD SHE HAD A LOW LYING PLACENTA OR PLACENTA PREVIA. History of Present Dating criteria: other (THIS PATIENT IS NOT A PATIENT AT [facility] AND WE DO NOT HAVE ACCESS TO HER RECORDS) care: good care Ultrasounds: other (DONT HAVE ACCESS TO THIS PATIENT'S RECORDS SHE IS A PATIENT ELSEWHERE) Abnormal ultrasound findings: ULTRASOUND DONE ON MATERNITY AT [place] WAS UNREMARKABLE EXCEPT FOR THE PRESENCE OF PLACENTAL LAKES complications: other (FIRST TIME OCCURRENCE OF BLEEDING IN AT 31.1 WEEKS IN A WOMAN WHO HAD RECENTS INTERCOURSE (2 DAYS PRIOR) AND THE PRESENCE OF PLACENTAL LAKES ON HER ULTRASOUND) Medical complications OB: none Labs Narrative: DO NOT HAVE ACCESS TO THIS PATIENT'S OB CHART HER PROVIDER IS IN [place] Review of Systems ROS Status of ROS: 10 or more systems reviewed and unremarkable except as noted in history and below Meds Home Medications and Allergies Allergies Allergy/AdvReac Type Severity Reaction Status Date / Time amoxicillin Allergy Mild Hives Verified 04/26/23 01:16 Penicillins Allergy Mild Hives Verified 04/26/23 01:16 Exam Constitutional Vital Signs, click to edit/add: Last Vital Signs Temp 96.4 F L 08/09/23 05:12 Pulse 69 08/09/23 09:55 BP 100/57 08/09/23 09:55 Documenting provider has reviewed patient's vital signs: yes Common normals: no apparent distress, oriented x3, no limitations, healthy appearing, alert and well nourished General appearance: cooperative, comfortable, well kempt and well developed Nutritional appearance: thin Orientation/consciousness: Yes awake, Yes oriented to person, Yes oriented to place and Yes oriented to time HENMT Common normals: normocephalic and head/scalp atraumatic Eye Pupil: PERRL and accommodation reflex normal Neck & C-Spine Common normals: full ROM Respiratory Common normals: normal respiratory effort Cardio Common normals: regular rate and regular rhythm GI Common normals: Normal to inspection, nondistended, normoactive bowel sounds present, soft to palpation and non-tender Common normals: no CVA tenderness Back & Pelvis Common normals: no thoracic nor lumbar tenderness Extremity Common normals: normal to inspection, full ROM and no calf tenderness Neuro Common normals: CN's II-XII intact bilaterally, moves all extremities, no focal motor deficits and no sensory deficits noted Psych Common normals: mental status grossly normal, thought process normal, cooperative, affect normal, speech normal and activity/motor behavior normal Appearance: grossly normal and well kempt Attitude: calm and engaged Activity/motor behavior: appropriate eye contact Mood and affect: euthymic mood Results Labs Labs: Urine 08/09/23 Range/Units 02:00 Urine Color Lt. yellow (YELLOW) Urine Clarity Clear (CLEAR) Urine pH 6.0 (5.0-9.0) Ur Specific [place] 1.010 (1.005-1.025) Urine Protein Negative (NEG/TRACE) mg/dL Urine Glucose (UA) Negative (NEGATIVE) mg/dL OB - A/P Assessment and Plan (1) Vaginal bleeding during : Assessment and Plan: 31.1 WEEKS. NEW ONSET OF BLEEDING, SHORT DURATION, 2 DAYS AFTER INTERCOURSE, IN A WOMAN WHO WORKS IN [employer] AND IS ON HER FEET MUCH OF SHIFT. THE OBSTETRICAL CHART IS NOT AVAILABLE HER PROVIDER IS IN [facility]. AN ULTRASOUND DONE ON [facility]ERNITY WAS UNREMARKABLE EXCEPT FOR PROBABLE PRESENCE OF PLACENTAL LAKES. THE BABY HAD A CAT I TRACING. THE PATIENT WOULD HAVE IRREGULAR CONTRACTIONS WHICH SHE DOES NOT FEEL. ON ULTRASOUND THE CERVIX IS 4.1 CM LONG. THE CERVIX IS CLOSED. ANN IS NORMAL. Plan WILL FAX ALL RECORDS TO THIS PATIENT'S PROVIDER. INSTRUCTED NOT TO HAVE SEX UNTIL SEES PROVIDER IN LIEU OF THIS BLEEDING EPISODE WHICH WAS BRIEF. ALSO, NOT TO RETURN TO WORK UNTIL PATIENT SEES PROVIDER. INSTRUCTED PATIENT TO CALL PROVIDER AND TELL OFFICE STAFF THAT PER DR. MINER SHE NEEDS TO BE SEEN FRIDAY. A DETAILED EXPLANATION WAS GIVEN FOR PLACENTAL LAKES AND HOW THESE CAN CAUSE INTERMITTENT VAGINAL BLEEDING DURING . THE PATIENT WAS REASSURRED THAT PRESENTLY THERE IS NO BLEEDING, THE BABY IS DOING WELL. HOWEVER, BLEEDING SHOULD RECUR SHE NEEDS TO GO TO [facility] THAT IS WHERE SHE WILL DELIVER AND CONTINUITY OF CARE IS ALWAYS DESIRED. ALL QUESTIONS WERE ANSWERED WITH STATED UNDERSTANDING BY BOTH THE PATIENT AND THE FOB. APPARENTLY LAST EVEN THE FOB WAS CONCERNED THAT i HAD NOT COME INTO ASSESS PATIENT. IT WAS EXPLAINED THAT THE BLEEDING HAD STOPPED, THE FH TRACING WAS REASSURRING, AND SHE DID NOT PRESENT AN ISSUE THAT REQUIRED MY APPEARANCE IN THE MIDDLE OF THE NIGHT. ALSO, IT WAS EXPLAINED THAT MY GOAL WAS TO OBSERVE THE PATIENT FOR RECURRENT BLEEDING, LOF, CONTRACTIONS FOR JEOPARDY AT WHICH POINT I WOULD COME IN EXPEDITIOUSLY. OTHERWISE, WITHOUT AN EVENT, MY PRESENCE WAS NOT REQUIRED DURING THE OBSERVATION PHASE.
[2023-08-09 12:19] VITALS: TEMP 36.7
[2023-08-09 13:20] VITALS: BP 101/68; PULSE 114; TEMP 36.6
== END 2023-08-09 14:30 | disposition home or self-care (01) ==
PROVIDERS: Admitting Provider Obstetrics & Gynecology; Visit Provider Obstetrics & Gynecology
DX: O46.93 Antepartum hemorrhage, unspecified, third trimester (principal); Z3A.31 31 weeks gestation of pregnancy
CPT/HCPCS: 59025; 76815; 76817; 80307; 81001; G0378; G0379